=== PATIENT | male | born 1960 | race Caucasian/White ===

== ENCOUNTER 2018-01-15 08:49 | Day surgery (SDC) | payer OTHER ==
[2018-01-15] MEDS ORDERED: LIDOCAINE 2% INJ-PF (20 MG/ML) 10 ML AMPUL ONE (10:13)
[2018-01-15] MEDS ORDERED: PROPOFOL INJ 200 MG/20 ML VIAL IV ONE (10:14)
[2018-01-15] MEDS ORDERED: MIDAZOLAM 2 MG/2 ML INJ ONE (10:14)
[2018-01-15] MEDS ORDERED: ONDANSETRON HCL INJ/PF 4 MG/2 ML SDV ONE (10:50)
[2018-01-15] MEDS ORDERED: DEXAMETHASONE SOD PHOSPHATE INJ 4 MG/1 ML VIAL ONE (10:50)
[2018-01-15] MEDS ORDERED: MEPERIDINE HCL/PF INJ 25 MG/1 ML DISP.SYRIN IV PRN (10:59)
[2018-01-15] MEDS ORDERED: FENTANYL CITRATE INJ/PF 100 MCG/2 ML AMPUL IV PRN (10:59)
[2018-01-15] MEDS ORDERED: ONDANSETRON HCL INJ/PF 4 MG/2 ML SDV IV PRN (10:59)
[2018-01-15] MEDS ORDERED: DIPHENHYDRAMINE HCL 50 MG/ML VIAL IV PRN (10:59)
[2018-01-15] MEDS ORDERED: PROMETHAZINE HCL INJ 25 MG/1 ML VIAL IV PRN ×2 (10:59)
--- NOTE | 2018-01-15 11:46 | Operative Report ---
Operative Report DATE OF SURGERY: 01/15/18 Operative Report: The risks, benefits and alternatives of the procedure including risks of bleeding, perforation requiring surgery are explained to the patient in detail and informed consent is obtained. The patient is taken back to the operating room and placed in the left, lateral decubital position. Timeout was called. Propofol medications administered. A rectal examination is done which did not reveal any masses, tears or fissures. An Olympus videoscope was inserted into the patient's rectum. The scope was then carefully advanced all the way to the cecum. The cecum was identified by the usual anatomical landmarks including the ileocecal valve as well as the appendiceal office. Photodocumentation is obtained. Irrigation is done. The scope was then sequentially pulled out via the various segments of the colon including the ascending colon, hepatic flexure , transverse colon, splenic flexure, descending colon, sigmoid colon and finally into the rectum. Retroflexion maneuvers performed. PREOPERATIVE DIAGNOSIS: Personal history of polyps, rectal bleeding POSTOPERATIVE DIAGNOSIS: 1 large rectal polyp that is removed via snare polypectomy and multiple fragments. Endoclips were placed to reduce the risk of bleeding. Sigmoid colon polyp pedunculated that was removed. Proximal transverse colon polyp sessile, removed via snare polypectomy. There is severe sigmoid diverticulosis. Internal hemorrhoids. Prolonged procedure greater than 45 minutes OPERATION: Colonoscopy with snare polypectomy SURGEON: NITO WEBSTER ANESTHESIA: LMAC TISSUE REMOVED OR ALTERED: As noted above. COMPLICATIONS: None. ESTIMATED BLOOD LOSS: None. INTRAOPERATIVE FINDINGS: As noted above. PROCEDURE: Patient tolerated procedure well. No immediate postprocedure complications are noted. Patient discharged in good condition. Discharge date 01/15/2019. Discharge diet: Regular. Discharge activity: Regular. 2-3 week follow-up to discuss findings. Pending the pathology may need six-month surveillance colonoscopy. Further recommendations to follow.
[2018-01-15 13:25] VITALS: BP 129/60
== END 2018-01-15 12:50 | disposition home or self-care (01) ==
LOC: OROUT 08:49
PROVIDERS: ATTEND Internal Medicine Gastroenterology
DX: D12.3 Benign neoplasm of transverse colon (principal); D12.7 Benign neoplasm of rectosigmoid junction; K57.30 Diverticulosis of large intestine without perforation or abscess without bleeding; K64.8 Other hemorrhoids; Z86.010 Personal history of colon polyps; K21.9 Gastro-esophageal reflux disease without esophagitis; G47.30 Sleep apnea, unspecified; J43.9 Emphysema, unspecified; G47.33 Obstructive sleep apnea (adult) (pediatric); Z87.891 Personal history of nicotine dependence; Z79.51 Long term (current) use of inhaled steroids; Z79.899 Other long term (current) drug therapy
CPT/HCPCS: 45385; 88305 ×2; J1100; J2405; J2704; J3490; 45388; 811; J2250

== ENCOUNTER 2018-02-26 05:15 | Day surgery (SDC) | payer OTHER ==
[2018-02-20 12:23] LABS: HEMATOCRIT 42.2 % (37.9-51.0); HEMOGLOBIN 14.4 g/dL (13.5-17.0); MEAN CORPUSCULAR HEMOGLOBIN 31.3 pg (27.0-33.4); MEAN CORPUSCULAR HGB CONC 34.2 g/dL (32.0-36.0); MEAN CORPUSCULAR VOLUME 91 fl (80-97); PLATELET COUNT 297 10^3/uL (150-450); RED BLOOD COUNT 4.61 10^6/uL (4.35-5.55); WHITE BLOOD COUNT 6.4 10^3/uL (4.0-10.5)
[2018-02-20 12:31] LABS: PROTHROMBIN TIME 12.6 SEC (11.4-15.4)
[2018-02-20 12:32] LABS: PARTIAL THROMBOPLASTIN TIME 20.8 SEC (23.5-35.8)
--- NOTE | 2018-02-20 22:42 | EKG REPORT ---
SEVERITY:- NORMAL ECG - SINUS RHYTHM : Confirmed by: Rosalia Hodges 20-Feb-2018 22:41:13
[~2018-02-26 05:15] MED LIST: AMPICILLIN SODIUM/SULBACTAM NA 3 GM in NORMAL SALINE 100 ML IV PRN; LACTATED RINGERS 1000 ML IV PRN; LIDOCAINE 0.5% INJ-PF (5 MG/ML) 50 ML SDV SUBCUT PRN; LIDOCAINE 1%/EPINEPHRINE INJ 20 ML VIAL ONE; POVIDONE-IODINE 5% OPH PREP SOLN 30 ML ONE; SODIUM BICARBONATE 8.4% INJ 50 MEQ/50 ML DISP.SYRIN ONE
[2018-02-26] MEDS ORDERED: MIDAZOLAM 2 MG/2 ML INJ ONE (07:10)
[2018-02-26] MEDS ORDERED: FENTANYL CITRATE INJ/PF 100 MCG/2 ML AMPUL ONE (07:10)
[2018-02-26] MEDS ORDERED: PROPOFOL INJ 200 MG/20 ML VIAL IV ONE (07:11)
[2018-02-26] MEDS ORDERED: DIPHENHYDRAMINE HCL 50 MG/ML VIAL IV PRN (07:56)
--- NOTE | 2018-02-26 09:47 | Operative Report ---
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 Patient was brought into the operating room and placed on the operating room table in a [supine] position. Patient was then prepped with a Betadine scrub and Betadine solution and draped in a sterile and aseptic manner. The area was then marked. 12 O'clock was marked towards the midline lip 3 O'clock was marked towards the lower lip 6:00 was marked towards the lateral commissure 9:00 was marked towards the medial cheek The area was then anesthetized with 1% lidocaine with epinephrine and bicarbonate for its anesthetic and hemostatic effects. The area was then excised and marked at 12:00. The specimen was sent for frozen section. The results came back that the deep and lateral margins were free. We had considered a primary closure but this would go against the natural relaxed skin tension lines. A primary closure would be too tight and would have increased chance of dehiscence. This will leave more of a scar so we decided to use a O to T flap reconstruction which would camouflage the scar better and take tension off of the closure so that would be less chances of complications. We considered a V-Y Advancement Flap however on a male this would be hard to camouflage and usually leaves a visual scar. Using the O to T we did resect across the white roll and vermilion border and into the lip onto the mouth to remove any puckering and the flap that was created was used to maintain the nasolabial fold. With this design we were able to keep a natural nasolabial fold and we were able to minimize the amount of visual scar and have one scar that crosses the white roll vermilion border and taking the dog ear out from mucosal surface and inside the mouth where it is camouflaged. Then we went ahead and outlined the flap and anesthetized it. We then incised the flap and developed a flap maintaining the subdermal plexus. Then we undermined 360 to allow for plate like scarring and minimize trap door deformity. Throughout the case hemostasis was achieved with the bipolar. We then sutured the flap into its new position using 5-0 Vicryl for the subcutaneous and deep dermis. Skin was closed with a interrupted simple and horizontal mattress sutures using 5-0 chromic and 6-0 Prolene We then applied tincture benzoin and Steri-Strips followed by a light pressure dressing. Patient was then reversed from anesthesia and taken to the [facility] for recovery. The patient tolerated well. There were no complications. Lesion size was approximately 1.3 x 1.4 cm please see pathology for actual size. Portions of this note may be dictated using [employer] voice recognition software. Occasional variations and spelling and vocabulary could be possible and are unintentional. Additionally, there is a chance that some errors may not be caught or corrected. Please notify the author of any discrepancies noted or if any statements are unclear. Subjective: No complaints Objective: Vital signs stable afebrile No bleeding Dressing intact Assessment and plan: Doing well. Elevate the operative site. Resume medications. Take antibiotics for 1 day Follow-up Full instructions were given to the patient and family and they understand Portions of this note may be dictated using [employer] voice recognition software. Occasional variations and spelling and vocabulary could be possible and are unintentional. Additionally, there is a chance that some errors may not be caught or corrected. Please notify the offer of any discrepancies noted or if any statements are unclear.
--- NOTE | 2018-02-26 09:50 | Discharge Summary ---
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 Leave the steri-strip tapes on for 5 days, then removal. Then cleaning wound with peroxide and apply Neosporin/bacitracin 3 times per day. Antibiotics for 1 day, then discontinue. Elevate operative area to decrease swelling. Do not strain, or lift heavy objects. Call for excessive bleeding, increased temperature of 101, uncontrolled pain, or excessive nausea or vomiting. You may reach Dr. Monroe through his office at [phone]. In the event of an emergency after hours, then contact Dr. Monroe through [facility]. Return to the office for a postop check on . The time will be scheduled by the nursing staff of [facility] prior to discharge. Please give the patient a copy of their labs and EKG so they can bring this to their PMD. Thank you Portions of this note may be dictated using [employer] voice recognition software. Occasional variations and spelling and vocabulary could be possible and are unintentional. Additionally, there is a chance that some errors may not be caught or corrected. Please notify the offer of any discrepancies noted or if any statements are unclear. Referrals: TIERRA ARAIZA MD [Primary Care Provider] - Discharge Diet: As Tolerated Report the Following to Your Physician Immediately: Unusual Bleeding - Clear liquids for 2 days. Full liquids for 2 days. Soft diet for the next several days thereafter. Keep head elevated. Limited activities. Minimal talking. Do not open the mouth wide.
[2018-02-26 11:54] VITALS: BP 133/81
== END 2018-02-26 11:25 | disposition home or self-care (01) ==
LOC: OROUT 05:15
PROVIDERS: ATTEND Plastic Surgery
DX: C44.02 Squamous cell carcinoma of skin of lip (principal); J43.9 Emphysema, unspecified; M19.90 Unspecified osteoarthritis, unspecified site; E78.5 Hyperlipidemia, unspecified; Z79.899 Other long term (current) drug therapy; Z87.891 Personal history of nicotine dependence
CPT/HCPCS: 93005; 36415; 85027; 85610; 85730; 88305 ×2; 88331 ×2; 93010; 14060; J0295; J3490 ×3; J2704; 300; J2250; J3010

== ENCOUNTER → 2018-03-08 | Outpatient (CLI) | payer OTHER ==
--- NOTE | 2018-03-08 08:46 | RADIOLOGY REPORT (SQ) ---
EXAM DESCRIPTION: CT CHEST WITHOUT COMPLETED DATE/TIME: 03/08/2018 7:57 am REASON FOR STUDY: SOLITARY PULMONARY NODULE (R91.1) R91.1 SOLITARY PULMONARY NODULE COMPARISON: 11/16/2017 CT chest on [facility] [place] TECHNIQUE: CT scan performed of the chest without intravenous contrast. Images reviewed with lung, soft tissue and bone windows. Reconstructed coronal and sagittal MPR images reviewed. All images st ored on PACS. All CT scanners at this facility use dose modulation, iterative reconstruction, and/or weight based d osing when appropriate to reduce radiation dose to as low as reasonably achievable (ALARA). [facility]: Dose Right [facility]: CareDose [facility]: Dose Right [facility]: Teradose 4D [facility]: Smart [employer] RADIATION DOSE: CT Rad equipment meets quality standard of care and radiation dose reduction techniq ues were employed. CTDIvol: 6.7 mGy. DLP: 296 mGy-cm. mGy. LIMITATIONS: No technical limitations. FINDINGS: LUNGS AND PLEURA: On axial image 84, a 7 mm smooth oval noncalcified nodule is present in the left upper lobe near the major fissure. This is unchanged from CT chest 11/16/2017. In the lingula and along the left major fissure, several other smaller less than 4 mm smooth round ochoa bpleural nodules are present likely noncalcified granulomas. These are stable. There is minimal lingular bandlike atelectasis or scarring stable. On the right side, stable apical bulla or bleb and stable right middle lobe bandlike atelectasis with mild bronchiectasis is present. These findings are stable. No pneumothorax. No pleural effusions. HILAR AND MEDIASTINAL STRUCTURES: No identified masses or abnormal nodes. No obvious aneurysm. Smal l to moderate size retrocardiac hiatal hernia. HEART AND VASCULAR STRUCTURES: No aneurysm. No pericardial effusion. UPPER ABDOMEN: No significant findings. Limited exam. THYROID AND OTHER SOFT TISSUES: Bilateral gynecomastia. BONES: No significant finding. HARDWARE: None in the chest. OTHER: No other significant findings. IMPRESSION: Stable 7 mm nodule in the lingula Repeat noncontrast CT in 1 year (April 2019 for 18 month follow-up to the original CT November 2017 ) COMMENT: FLEISCHNER CRITERIA FOR FOLLOW-UP OF PULMONARY NODULES Incidentally detected new nodules in persons 35 or older. HIGH RISK: History of smoking or other known risk factors. 6-8mm single solid nodule: LOW RISK: CT 6-12 mo; then consider CT 18-24 mo. HIGH RISK: CT 6-12 mo; then CT 18-24 mo. TECHNICAL DOCUMENTATION: JOB ID: [id number] Quality ID # [id number]: Final reports with documentation of one or more dose reduction techniques (e.g., Au tomated exposure control, adjustment of the mA and/or kV according to patient size, use of iterative reconstruction technique) 2010 [employer]- All Rights Reserved Reading location - IP/workstation name: [email or web address]
== END ==
LOC: RAD 07:14
PROVIDERS: ATTEND Internal Medicine Pulmonary Disease
DX: R91.1 Solitary pulmonary nodule (principal)
CPT/HCPCS: 71250

== ENCOUNTER → 2018-03-26 | Outpatient (CLI) | payer OTHER ==
--- NOTE | 2018-03-27 09:56 | RADIOLOGY REPORT (SQ) ---
EXAM DESCRIPTION: PET CT SKULL/THIGH COMPLETED DATE/TIME: 03/27/2018 9:18 am REASON FOR STUDY: SOLITARY PULMONARY NODULE, OTHER DISORDER R91.1 SOLITARY PULMONARY NODULE J98.4 OTHER DISORDERS OF LUNG COMPARISON: CT abdomen pelvis 10/15/2014 CT chest 03/08/2018 Report only, [facility] CT chest 11/16/2017 RADIONUCLIDE AND DOSE: 11.9 mCi F18 FDG The route of agent administration: Intravenous FASTING BLOOD SUGAR: 90 mg/dl CONTRAST TYPE AND DOSE: No CT contrast given. TECHNIQUE: Blood glucose level was verified. Above dose of FDG was injected intravenously. 2-D seg mented attenuation correction images were obtained from the base of the skull to the midthighs. Nonc ontrast CT images were obtained for attenuation correction and fusion with emission images. CT image s were performed without oral or intravenous contrast and are not sensitive for parenchymal lesions. A series of overlapping emission PET images were obtained. Images reviewed and manipulated at [facility] work station by the radiologist. Images stored on PACS. LIMITATIONS: None. FINDINGS: HEAD AND NECK: No areas of abnormal metabolic activity in the soft tissues of the head and neck. CHEST: No areas of abnormal metabolic activity in the chest. However, the lingular nodule of concern is less than 1 cm in size, false negative PET-CT could occur. Recommend continuing non contrasted C T chest follow-up 47 mm node smooth round nodule near the major fissure, with repeat CT without IV co ntrast chest April 2019. ABDOMEN AND PELVIS: No areas of abnormal metabolic activity in the abdomen or pelvis. Expected physi ologic activity is present in the genitourinary system and bowel. PROXIMAL LOWER EXTREMITIES: No areas of abnormal metabolic activity in the soft tissues of the lower extremities. BONES: No abnormal metabolic activity in the visualized skeleton. ADDITIONAL CT FINDINGS: Obstructive lung disease. Bronchiectasis and scarring in the right middle lo be and lingula with benign-appearing 7 mm posterior left upper lobe nodule near the major fissure, fo r which non contrasted CT chest is recommended April 2019. Bilateral gynecomastia. Moderate size hia doe hernia. Colonic diverticulosis without CT signs of acute diverticulitis OTHER: Liver background activity 2.0 SUV. Blood pool background activity 1.5 SUV. IMPRESSION: Smooth round 7 mm nodule in the posterior aspect left upper lobe near the major fissure, unchanged compared to 03/08/2018 CT chest. This nodule is less than 1 cm in size, false negative PET- CT results could occur. Recommend continuing imaging surveillance with noncontrast CT chest in April 2019 for patient's 18 month follow-up exam. TECHNICAL DOCUMENTATION: JOB ID: [id number] [employer]- All Rights Reserved Reading location - IP/workstation name: [email or web address]
== END ==
LOC: RAD 17:19
PROVIDERS: ATTEND Internal Medicine Pulmonary Disease
DX: R91.1 Solitary pulmonary nodule (principal); J98.4 Other disorders of lung
CPT/HCPCS: 78815; A9552

== ENCOUNTER 2018-08-19 06:44 | Day surgery (SDC) | payer OTHER ==
[2018-08-19] MEDS ORDERED: PROPOFOL INJ 200 MG/20 ML VIAL IV ONE ×2 (07:26→08:39)
[2018-08-19 09:30] VITALS: BP 107/62
--- NOTE | 2018-08-19 13:48 | Operative Report ---
Operative Report DATE OF SURGERY: 08/19/18 Operative Report: The risks, benefits and alternatives of the procedure including the risk of bleeding, perforation requiring surgery are explained to the patient in detail and informed consent is obtained. The patient is placed in a left, lateral decubital position. Timeout was called. Propofol medication is administered. A rectal examination is done which did not reveal any masses, tears or fissures. An Olympus videoscope was inserted into the patient's rectum. The scope was then carefully advanced all the way to the cecum. Cecum was identified by the usual anatomical landmarks including the ileocecal valve as well as appendiceal office. Photodocumentation is obtained. Scope was then sequentially pulled back via the various segments of the colon including the ascending colon, hepatic flexure, transverse colon, splenic flexure, descending colon and finally into the rectosigmoid portions of the colon. Retroflexion maneuvers performed. PREOPERATIVE DIAGNOSIS: Personal history of polyps POSTOPERATIVE DIAGNOSIS: Small polyp in the cecal vault removed via biopsy forceps. Polyp noted in the ascending colon removed via snare polypectomy. Rectal polyp removed via snare polypectomy. Diverticulosis without any evidence of diverticulitis. Internal hemorrhoids OPERATION: Colonoscopy with snare polypectomy. Colonoscopy with biopsy SURGEON: NITO WEBSTER ANESTHESIA: LMAC TISSUE REMOVED OR ALTERED: As noted above. COMPLICATIONS: None. ESTIMATED BLOOD LOSS: None. INTRAOPERATIVE FINDINGS: As noted above. PROCEDURE: Patient tolerated procedure well. No immediate postprocedure complications are noted. Patient discharged in good condition. Discharge date 08/19/2018. Discharge diet: Regular. Discharge activity: Regular. 2-3-week follow-up to discuss findings. Patient is instructed call the office or proceed to the emergency room should there be any further proximal questions. Wait on the pathology. 6-month surveillance colonoscopy.
== END 2018-08-19 09:20 | disposition home or self-care (01) ==
LOC: END 06:44
PROVIDERS: ATTEND Internal Medicine Gastroenterology
DX: Z12.11 Encounter for screening for malignant neoplasm of colon (principal); K57.30 Diverticulosis of large intestine without perforation or abscess without bleeding; D12.2 Benign neoplasm of ascending colon; D12.6 Benign neoplasm of colon, unspecified; D12.8 Benign neoplasm of rectum; K64.8 Other hemorrhoids; Z86.010 Personal history of colon polyps; J43.9 Emphysema, unspecified; Z87.891 Personal history of nicotine dependence
CPT/HCPCS: 45380; 45385; 45381; 88305 ×2; J2704; 811

== ENCOUNTER 2018-08-19 14:39 | Inpatient (IN) | payer OTHER ==
[2018-08-19] MEDS ORDERED: NORMAL SALINE 1000 ML 1,000 ML IV ONE (15:04)
--- NOTE | 2018-08-19 15:04 | ER Document Report ---
ED General - General Mode of Arrival: Ambulatory Information source: Patient TRAVEL OUTSIDE OF THE [place] IN LAST 30 DAYS: No <SIERRA PALAFOX - Last Filed: 08/19/18 16:04> <MAINOR AHUJA - Last Filed: 08/19/18 16:24> - General Chief Complaint: Fever Stated Complaint: FEVER Time Seen by Provider: 08/19/18 14:54 Notes: Patient is a 57-year-old male with diverticulosis, COPD and a history of diverticulitis presents to the emergency department complaining of a fever onset today. Patient states that he was discharged after a colonoscopy (poylp removal) around 0900 this morning and began to feel cold afterwards. He states shortly after feeling cold he began to feel hot and developed shortness of breath. Patient states his shortness of breath is new to him due to having recent blebs removed from his left and right lung in April and May, further stating his breathing was much better afterward the bleb removal. Patient states the shortness of breath worsened throughout the day to the point where he was unable to walk around his home and proceeded to come to the emergency department. Patient denies any focal pain. Upon arrival to emergency department patient had an O2 sat of 88 and a fever of 100.3. (SIERRA PALAFOX) Later history is that he has had a little bit of a yellow to green productive cough for the past few days. It is not been really causing him any problems. I do not believe he told his doctor about this prior to the colonoscopy. (MAINOR AHUJA) - Related Data Allergies/Adverse Reactions: midazolam [From Versed] Adverse Reaction (Verified 08/19/18 07:05) VOMITING Past Medical History - General Information source: Patient - Social History Smoking Status: Former Smoker - quit 20+ years ago as of 2018 Cigarette use (# per day): No Smoking Education Provided: No Frequency of alcohol use: None Family History: Reviewed & Not Pertinent Pulmonary Medical History: Reports: Hx Bronchitis, Hx COPD, Hx Pneumonia Musculoskeletal Medical History: Reports Hx Arthritis Past Surgical History: Reports: Other - Bleb removal from left lung in April and right lung in May. - Immunizations Hx Diphtheria, Pertussis, Tetanus Vaccination: Yes - PT UNSURE OF DATE OF PNEUMO VACC Hx Pneumococcal Vaccination: 11/05/00 <SIERRA PALAFOX - Last Filed: 08/19/18 16:04> Review of Systems - Review of Systems Constitutional: See HPI, Fever EENT: No symptoms reported Cardiovascular: No symptoms reported Respiratory: See HPI, Short of breath Gastrointestinal: No symptoms reported Genitourinary: No symptoms reported Male Genitourinary: No symptoms reported Musculoskeletal: No symptoms reported Skin: No symptoms reported Hematologic/Lymphatic: No symptoms reported Neurological/Psychological: No symptoms reported -: Yes All other systems reviewed and negative <VIVIENNESIERRA MCDONALD - Last Filed: 08/19/18 16:04> Physical Exam - General General appearance: Appears well, Alert In distress: None - HEENT Head: Normocephalic, Atraumatic Eyes: Normal Conjunctiva: Normal Extraocular movements intact: Yes Pupils: PERRL Mucous membranes: Normal Neck: Normal - Respiratory Respiratory status: Tachypnea - Currently 93% on 2L of oxygen Chest status: Nontender Breath sounds: Rhonchi - Left lower lung base, Other - Crackles in left lower lung base Chest palpation: Normal - Cardiovascular Rhythm: Regular, Tachycardia Murmur: No Friction rub: No Gallop: None auscultated - Abdominal Inspection: Normal Distension: Distended - Resonant to percuss Bowel sounds: Normal Tenderness: Nontender Organomegaly: No organomegaly - Back Back: Normal - Extremities General upper extremity: Normal ROM General lower extremity: Normal ROM - Neurological Neuro grossly intact: Yes Cognition: Normal Orientation: AAOx4 Hailey Coma Scale Eye Opening: Spontaneous Hailey Coma Scale Verbal: Oriented Hailey Coma Scale Motor: Obeys Commands [place] Coma Scale Total: 15 Speech: Normal - Psychological Associated symptoms: Normal affect, Normal mood - Skin Skin Temperature: Warm Skin Moisture: Dry Skin Color: Normal <VIVIENNESIERRA MCDONALD Last Filed: 08/19/18 16:04> - Vital signs Vitals: Resp Pulse Ox 24 H 92 08/19/18 14:54 08/19/18 14:54 Course - Laboratory Result Diagrams: 08/19/18 15:05 08/19/18 15:05 <VIVIENNESIERRA MCDONALD Last Filed: 08/19/18 16:04> - Laboratory Result Diagrams: 08/19/18 15:05 08/19/18 15:05 - Diagnostic Test Radiology reviewed: Reports reviewed - Left lower lobe pneumonia, possibly due to aspiration - EKG Interpretation by Me EKG shows normal: Sinus rhythm, [place], Intervals, QRS Complexes, ST-T Waves Rate: Tachycardia - 136 [place]/QRS: RBBB - Incomplete right bundle branch block When compared to previous EKG there are: Previous EKG unavailable - Consults Dr. Robertson Time consulted: 16:10 Consulted provider: will come to ER <MAINOR AHUJA - Last Filed: 08/19/18 16:24> - Re-evaluation Re-evalutation: 08/19/18 16:04 Patient rechecked. Patient mentions having a productive cough with yellowish green sputum the last couple of days. (SIERRA PALAFOX) - Vital Signs Vital signs: Temp Pulse Resp BP Pulse Ox 23 H 93 08/19/18 15:00 08/19/18 15:00 - Laboratory Laboratory results interpreted by me: 08/19/18 08/19/18 08/19/18 14:59 15:05 15:05 WBC 13.3 H Seg Neuts % (Manual) 89 H Band Neutrophils % 6 H Lymphocytes % (Manual) 4 L Monocytes % (Manual) 0 L Abs Neuts (Manual) 12.6 H Abs Monocytes (Manual) 0.0 L Glucose 117 H Direct Bilirubin 0.5 H Urine Ketones 80 H Critical Care Note - Critical Care Note Total time excluding time spent on procedures (mins): 40 <MAINOR AHUJA - Last Filed: 08/19/18 16:24> Discharge <SIERRA PALAFOX - Last Filed: 08/19/18 16:04> - Discharge Admitting Provider: Hospitalist Unit Admitted: Telemetry <MAINOR AHUJA - Last Filed: 08/19/18 16:24> - Discharge Clinical Impression: Hypoxia, Tachycardia, Status post colonoscopy with polypectomy Pneumonia Qualifiers: Pneumonia type: due to unspecified organism Laterality: left Lung location: lower lobe of lung Qualified Code(s): J18.1 - Lobar pneumonia, unspecified organism Fever Qualifiers: Fever type: unspecified Qualified Code(s): R50.9 - Fever, unspecified Leukocytosis Qualifiers: Leukocytosis type: bandemia Qualified Code(s): D72.825 - Bandemia Condition: Good Disposition: ADMITTED INPATIENT Referrals: TIERRA ARAIZA MD [Primary Care Provider] - Follow up as needed Scribe Attestation: 08/19/18 15:44 I personally performed the services described in the documentation, reviewed and edited the documentation which was dictated to the scribe in my presence, and it accurately records my words and actions. (MAINOR AHUJA) Scribe Documentation - Scribe Written by Scribe:: Wilver Linder, 08/19/2018 15:24 acting as scribe for :: Debby <SIERRA PALAFOX - Last Filed: 08/19/18 16:04>
[2018-08-19 15:22] LABS: APPEARANCE,URINE CLEAR; BILIRUBIN,URINE NEGATIVE (NEGATIVE); COLOR,URINE YELLOW; GLUCOSE, URINE NEGATIVE (NEGATIVE); KETONES,URINE 80 mg/dL (NEGATIVE); LEUKOCYTE ESTERASE,URINE NEGATIVE (NEGATIVE); NITRITE,URINE NEGATIVE (NEGATIVE); PROTEIN,URINE NEGATIVE (NEGATIVE); URINE SPECIFIC GRAVITY 1.019; UROBILINOGEN,URINE NEGATIVE mg/dL (<2.0)
[2018-08-19 15:24] LABS: VENOUS BLOOD BASE EXCESS 1.5 mmol/L; VENOUS BLOOD HCO3 27.5 mmol/L (20-32); VENOUS BLOOD PCO2 47.8 mmHg (35-63); VENOUS BLOOD PH 7.38 (7.30-7.42)
[2018-08-19 15:29] LABS: HEMATOCRIT 44.8 % (37.9-51.0); HEMOGLOBIN 15.4 g/dL (13.5-17.0); MEAN CORPUSCULAR HEMOGLOBIN 29.7 pg (27.0-33.4); MEAN CORPUSCULAR HGB CONC 34.5 g/dL (32.0-36.0); MEAN CORPUSCULAR VOLUME 86 fl (80-97); PLATELET COUNT 259 10^3/uL (150-450); RED BLOOD COUNT 5.19 10^6/uL (4.35-5.55); WHITE BLOOD COUNT 13.3 10^3/uL (4.0-10.5)
[2018-08-19] MEDS ORDERED: ACETAMINOPHEN 325 MG TABLET PO ONE (15:30)
[2018-08-19] MEDS ORDERED: LEVOFLOXACIN 750 MG/D5W RTU 750 MG/150 ML RTUPB IV ONE (15:30)
[2018-08-19 15:44] LABS: ALANINE AMINOTRANSFERASE 49 U/L (21-72); ALBUMIN 4.6 g/dL (3.5-5.0); ALKALINE PHOSPHATASE 93 U/L (38-126); ANION GAP 13 (5-19); ASPARTATE AMINO TRANSFERASE 39 U/L (17-59); BILIRUBIN,DIRECT 0.5 mg/dL (0.0-0.4); BILIRUBIN,TOTAL 1.1 mg/dL (0.2-1.3); BLOOD UREA NITROGEN 13 mg/dL (7-20); CALCIUM 9.8 mg/dL (8.4-10.2); CARBON DIOXIDE 27 mmol/L (22-30); CHLORIDE 100 mmol/L (98-107); CREATINE KINASE 59 U/L (55-170); GLUCOSE 117 mg/dL (75-110); POTASSIUM 4.2 mmol/L (3.6-5.0); SODIUM 139.6 mmol/L (137-145)
[2018-08-19] MEDS ORDERED: METHYLPREDNISOLONE INJ 125 MG/2 ML SDV IV ONE (15:51)
[2018-08-19 15:55] LABS: CREATINE KINASE MB 0.46 ng/mL (<4.55)
[2018-08-19 15:58] LABS: TROPONIN I < 0.012 ng/mL
--- NOTE | 2018-08-19 15:58 | RADIOLOGY REPORT (SQ) ---
EXAM DESCRIPTION: CHEST SINGLE VIEW COMPLETED DATE/TIME: 08/19/2018 3:48 pm REASON FOR STUDY: Post colonoscopy fever with dyspnea COMPARISON: Two-view chest 02/01/2010 EXAM PARAMETERS: NUMBER OF VIEWS: One view. TECHNIQUE: Single frontal radiographic view of the chest acquired. RADIATION DOSE: NA LIMITATIONS: None. FINDINGS: LUNGS AND PLEURA: There is left lower lobe airspace disease worrisome for aspiration pneum onia. This result was discussed with Dr. Guardado in the emergency room. Right lung clear. Faintly visible bilateral upper lobe lung parenchymal melvi post removal of apical bullous/blebs. No pneumothorax. No pleural effusions. MEDIASTINUM AND HILAR STRUCTURES: No masses. Contour normal. HEART AND VASCULAR STRUCTURES: Heart normal in size. Normal vasculature. BONES: No acute findings. HARDWARE: None in the chest. OTHER: No other significant finding. IMPRESSION: Left lower lobe airspace disease worrisome for aspiration pneumonia TECHNICAL DOCUMENTATION: JOB ID: [id number] [employer]- All Rights Reserved Reading location - IP/workstation name: [email or web address]
[2018-08-19 16:06] LABS: ABSOLUTE LYMPHOCYTES# (MANUAL) 0.5 10^3/uL (0.5-4.7); ABSOLUTE NEUTROPHILS# (MANUAL) 12.6 10^3/uL (1.7-8.2); BAND NEUTROPHILS % (MANUAL) 6 % (3-5); BASOPHILS % (MANUAL) 1 % (0-2); EOSINOPHILS % (MANUAL) 0 % (0-6); LYMPHOCYTES % (MANUAL) 4 % (13-45); MONOCYTES % (MANUAL) 0 % (3-13); SEGMENTED NEUTROPHILS % (MAN) 89 % (42-78); TOTAL CELLS COUNTED 100
[2018-08-19 16:08] LABS: PLATELET COMMENT ADEQUATE; TOXIC GRANULATION 1+; TOXIC VACUOLATION PRESENT
--- NOTE | 2018-08-19 17:00 | PDOC H&P ---
History of Present Illness Admission Date/PCP: 08/19/18 16:31 TIERRA ARAIZA MD History of Present Illness: KATINA ABRAHAM is a 57 year old male who came in today for a follow-up colonoscopy from when he had done about 6 months ago. The colonoscopy itself was uneventful, but his said after he got home he was not acting right does seem like it took him a long time to come out of the anesthesia. She said he then developed a worsening cough and fever and shortness of breath. She brought into the emergency department and it looks like he is got a pneumonia on chest x-ray. He said prior to the colonoscopy he was feeling fine had not been having any substantial symptoms to report. He is not been hospitalized in the last 3 months. Past Medical History Cardiac Medical History: Denies: Coronary Artery Disease - CHOLESTEROL, Myocardial Infarction, Hypertension Pulmonary Medical History: Reports: Bronchitis, Chronic Obstructive Pulmonary Disease (COPD), Pneumonia Denies: Asthma Neurological Medical History: Denies: Seizures Musculoskeltal Medical History: Reports: Arthritis Hematology: Denies: Anemia Past Surgical History Past Surgical History: Reports: Other - Bleb removal from left lung in April and right lung in May. Denies: Pacemaker Social History Smoking Status: Former Smoker - quit 20+ years ago as of 2018 Family History Family History: Reviewed & Not Pertinent Parental Family History Reviewed: Yes - Not applicable Children Family History Reviewed: NA Sibling(s) Family History Reviewed.: NA Medication/Allergy Allergies/Adverse Reactions: midazolam [From Versed] Adverse Reaction (Verified 08/19/18 07:05) VOMITING Review of Systems All systems: reviewed and no additional remarkable complaints except as stated - 10 point review of systems was conducted with the patient was negative except as noted above Physical Exam Vital Signs: Temp Pulse Resp BP Pulse Ox 23 H 93 08/19/18 15:00 08/19/18 15:00 General appearance: PRESENT: no acute distress, cooperative Head exam: PRESENT: atraumatic, normocephalic Eye exam: PRESENT: EOMI, PERRLA. ABSENT: nystagmus, scleral icterus Ear exam: PRESENT: normal external ear exam Mouth exam: PRESENT: moist, neck supple Throat exam: ABSENT: post pharyngeal erythema Neck exam: PRESENT: full ROM. ABSENT: JVD, lymphadenopathy, tenderness Respiratory exam: PRESENT: crackles - Left base, unlabored. ABSENT: accessory muscle use, rhonchi, tachypnea, wheezes Cardiovascular exam: PRESENT: tachycardia Pulses: PRESENT: normal radial pulses, normal dorsalis pedis pul Vascular exam: PRESENT: normal capillary refill GI/Abdominal exam: PRESENT: normal bowel sounds, soft. ABSENT: distended, guarding, rebound, tenderness Rectal exam: PRESENT: deferred Extremities exam: PRESENT: full ROM. ABSENT: pedal edema Musculoskeletal exam: PRESENT: normal inspection. ABSENT: deformity Neurological exam: PRESENT: alert, awake, oriented to person, oriented to place , oriented to time, CN II-XII grossly intact. ABSENT: motor sensory deficit Psychiatric exam: PRESENT: appropriate affect, normal mood Skin exam: PRESENT: dry, warm Results Impressions: Chest X-Ray 08/19/18 15:04 IMPRESSION: Left lower lobe airspace disease worrisome for aspiration pneumonia Assessment & Plan - Diagnosis (1) Sepsis Qualifiers: Sepsis type: sepsis due to unspecified organism Qualified Code(s): A41.9 - Sepsis, unspecified organism Is this a current diagnosis for this admission?: Yes Plan: Due to aspiration pneumonia. He was started empirically on Levaquin. He was lying on his left side during the colonoscopy and he probably aspirated during the course of the procedure. He already looks better in the ER. He is on oxygen for the hypoxemia. He feels good now wants something to eat. We will watch him overnight and monitor his clinical course. Cultures are pending. (2) Acute hypoxemic respiratory failure Is this a current diagnosis for this admission?: Yes Plan: I suspect this is likely resolved. He was up to 97% on 2 L when I saw him in the ER. We will take the oxygen off of him and see how he does. - Time Time Spent: 50 to 70 Minutes - Inpatient Certification Based on my medical assessment, after consideration of the patient's comorbidities, presenting symptoms, or acuity I expect that the services needed warrant INPATIENT care.: Yes I certify that my determination is in accordance with my understanding of Medicare's requirements for reasonable and necessary INPATIENT services [42 CFR 412.3e].: Yes Medical Necessity: Need Close Monitoring Due to Risk of Patient Decompensation
[2018-08-19 22:19] LABS: ANION GAP 12 (5-19); BLOOD UREA NITROGEN 12 mg/dL (7-20); CALCIUM 9.6 mg/dL (8.4-10.2); CARBON DIOXIDE 22 mmol/L (22-30); CHLORIDE 104 mmol/L (98-107); GLUCOSE 283 mg/dL (75-110); POTASSIUM 4.6 mmol/L (3.6-5.0); SODIUM 137.5 mmol/L (137-145)
[2018-08-19 22:31] LABS: ARTERIAL BLOOD H2CO3 1.18 mmol/L (1.05-1.35); ARTERIAL BLOOD HCO3 22.8 mmol/L (20-24); ARTERIAL BLOOD O2 SATURATION 95.6 % (94-98); ARTERIAL BLOOD PCO2 39.1 mmHg (35-45); ARTERIAL BLOOD PH 7.38 (7.35-7.45); ARTERIAL BLOOD PO2 79.5 mmHg (80-100)
[2018-08-19 22:37] LABS: ARTERIAL BLOOD FIO2 1L
[2018-08-20 06:46] LABS: HEMATOCRIT 39.9 % (37.9-51.0); HEMOGLOBIN 13.6 g/dL (13.5-17.0); MEAN CORPUSCULAR HEMOGLOBIN 29.8 pg (27.0-33.4); MEAN CORPUSCULAR HGB CONC 34.2 g/dL (32.0-36.0); MEAN CORPUSCULAR VOLUME 87 fl (80-97); PLATELET COUNT 245 10^3/uL (150-450); RED BLOOD COUNT 4.58 10^6/uL (4.35-5.55); RED CELL DISTRIBUTION WIDTH 13.2 % (11.5-14.0); WHITE BLOOD COUNT 19.8 10^3/uL (4.0-10.5)
[2018-08-20 07:07] LABS: ANION GAP 8 (5-19); BLOOD UREA NITROGEN 12 mg/dL (7-20); CALCIUM 9.8 mg/dL (8.4-10.2); CARBON DIOXIDE 27 mmol/L (22-30); CHLORIDE 103 mmol/L (98-107); GLUCOSE 186 mg/dL (75-110); POTASSIUM 4.4 mmol/L (3.6-5.0); SODIUM 138.4 mmol/L (137-145)
[2018-08-20] MEDS ORDERED: LEVOFLOXACIN 750 MG TABLET PO SCH (10:00)
[2018-08-20] MEDS ORDERED: EZETIMIBE 10 MG TABLET PO SCH (10:00)
[2018-08-20] MEDS ORDERED: LANSOPRAZOLE 30 MG TAB.RAP.DR PO SCH (10:00)
[2018-08-20] MEDS ORDERED: LEVALBUTEROL HCL NEB 1.25 MG/3 ML AMPUL NEB SCH (11:00)
[2018-08-20 11:12] VITALS: BP 111/63
[2018-08-20] MEDS ORDERED: ACETYLCYSTEINE 20% SOLN 800 MG/4 ML VIAL.NEB NEB SCH (12:00)
--- NOTE | 2018-08-20 12:29 | PDOC CONSULTATION ---
Consultation Consult Date: 08/20/18 Attending physician:: MARINE VEGAS Consult reason:: aspiration History of Present Illness Admission Date/PCP: 08/19/18 16:31 TIERRA ARAIZA MD History of Present Illness: KATINA ABRAHAM is a 57 year old male , Status post colonoscopy denies infiltrate left lower lobe presumed aspiration she is coughing up dark yellow phlegm but otherwise in no distress I followed him in [facility] for lung nodule which still has not appear to be changing although currently I would not get repeat a CT scan as he would probably do be difficult to interpret in the face of this acute inflammation he denies shortness of breath dips and exertion nausea vomiting diarrhea fevers chills chest pain or edema Past Medical History Cardiac Medical History: Denies: Coronary Artery Disease - CHOLESTEROL, Myocardial Infarction, Hypertension Pulmonary Medical History: Reports: Bronchitis, Chronic Obstructive Pulmonary Disease (COPD), Pneumonia Denies: Asthma Neurological Medical History: Denies: Seizures Musculoskeltal Medical History: Reports: Arthritis Hematology: Denies: Anemia Past Surgical History Past Surgical History: Reports: Other - Bleb removal from left lung in April and right lung in May. Denies: Pacemaker Social History Information Source: Patient, [facility] Records Smoking Status: Former Smoker Frequency of Alcohol Use: Rare Hx Recreational Drug Use: No Drugs: None Hx Prescription Drug Abuse: No - Advance Directive Resuscitation Status: Full Code Family History Family History: Hypertension Parental Family History Reviewed: Yes Children Family History Reviewed: Yes Sibling(s) Family History Reviewed.: Yes Medication/Allergy Home Medications: Dexlansoprazole [Dexilant 60 mg Capsule] 60 mg PO DAILY 08/19/18 Ezetimibe [Zetia 10 mg Tablet] 10 mg PO DAILY 08/19/18 Naproxen/Esomeprazole Mag [Vimovo Dr 500-20 mg Tablet] 1 each PO BID 08/19/18 Rosuvastatin Calcium [Crestor 10 mg Tablet] 10 mg PO DAILY 08/19/18 Moxifloxacin HCl [Avelox] 400 mg PO DAILY #7 tablet 08/20/18 Allergies/Adverse Reactions: midazolam [From Versed] Adverse Reaction (Verified 08/19/18 07:05) VOMITING Review of Systems Constitutional: ABSENT: chills, fever(s), night sweats, weakness Eyes: ABSENT: visual disturbances Ears: ABSENT: hearing changes Nose, Mouth, and Throat: ABSENT: mouth pain, sore throat Cardiovascular: ABSENT: dyspnea on exertion, edema, orthropnea, palpitations Respiratory: PRESENT: cough, hemoptysis, sputum Gastrointestinal: ABSENT: abdominal pain, bloating, coffee ground emesis, dysphagia, hematemesis, hematochezia, melena Genitourinary: ABSENT: dysuria, hematuria Musculoskeletal: ABSENT: deformity, joint swelling Integumentary: ABSENT: pruritus, rash Neurological: ABSENT: abnormal movements, abnormal speech, confusion, convulsions, focal weakness, frequent falls, lack of coordination, memory loss, tingling, weakness Psychiatric: ABSENT: hallucinations, homidical ideation, suicidal ideation Endocrine: ABSENT: cold intolerance, heat intolerance, polydipsia, polyuria Hematologic/Lymphatic: ABSENT: easy bruising Allergic/Immunologic: ABSENT: seasonal rhinorrhea Physical Exam Vital Signs: Temp Pulse Resp BP Pulse Ox 98.1 F 91 15 116/64 95 08/20/18 03:25 08/20/18 07:23 08/20/18 03:25 08/20/18 07:23 08/20/18 07:23 Intake & Output 08/19/18 08/20/18 08/21/18 06:59 06:59 06:59 Intake Total 1530 Balance 1530 Weight 76.8 kg General appearance: PRESENT: no acute distress, cooperative, well-developed, well-nourished. ABSENT: disheveled Head exam: PRESENT: atraumatic, normocephalic Eye exam: PRESENT: conjunctiva pale, EOMI, PERRLA. ABSENT: nystagmus, periorbital swelling, scleral icterus Mouth exam: PRESENT: moist, neck supple, tongue midline Neck exam: ABSENT: carotid bruit, JVD, lymphadenopathy, thyromegaly, tracheal deviation, tracheostomy Respiratory exam: PRESENT: rales, rhonchi, unlabored. ABSENT: retraction, stridor, tachypnea, wheezes Cardiovascular exam: PRESENT: RRR, +S1, +S2 Pulses: PRESENT: normal radial pulses GI/Abdominal exam: PRESENT: soft. ABSENT: tenderness Gentrourinary exam: ABSENT: indwelling catheter Extremities exam: ABSENT: calf tenderness, clubbing, joint swelling, pedal edema Musculoskeletal exam: PRESENT: ambulatory. ABSENT: deformity, dislocation Neurological exam: PRESENT: alert, awake Psychiatric exam: PRESENT: normal mood Skin exam: PRESENT: dry, warm Results Laboratory Results: 08/20/18 06:25 08/20/18 06:25 08/19/18 08/19/18 08/19/18 19:43 21:46 22:20 WBC RBC Hgb Hct MCV MCH MCHC RDW Plt Count Carbonic Acid 1.18 HCO3/H2CO3 Ratio 19:1 ABG pH 7.38 ABG pCO2 39.1 ABG pO2 79.5 L ABG HCO3 22.8 ABG O2 Saturation 95.6 ABG Base Excess -2.0 FiO2 1L Sodium 137.5 Potassium 4.6 Chloride 104 Carbon Dioxide 22 Anion Gap 12 BUN 12 Creatinine 0.74 Est GFR ( Amer) > 60 Est GFR (Non-Af Amer) > 60 Glucose 283 H Lactic Acid 4.7 H Calcium 9.6 08/20/18 08/20/18 06:25 06:25 WBC 19.8 H RBC 4.58 Hgb 13.6 Hct 39.9 MCV 87 MCH 29.8 MCHC 34.2 RDW 13.2 Plt Count 245 Carbonic Acid HCO3/H2CO3 Ratio ABG pH ABG pCO2 ABG pO2 ABG HCO3 ABG O2 Saturation ABG Base Excess FiO2 Sodium 138.4 Potassium 4.4 Chloride 103 Carbon Dioxide 27 Anion Gap 8 BUN 12 Creatinine 0.71 Est GFR ( Amer) > 60 Est GFR (Non-Af Amer) > 60 Glucose 186 H Lactic Acid Calcium 9.8 Impressions: Chest X-Ray 08/19/18 15:04 IMPRESSION: Left lower lobe airspace disease worrisome for aspiration pneumonia Assessment & Plan - Diagnosis (1) Aspiration pneumonitis Is this a current diagnosis for this admission?: Yes Plan: Acetylcysteine and Xopenex tid may be used at home as well as chest physiotherapy to the left lateral and posterior chest haque
--- NOTE | 2018-08-20 18:07 | PDOC DISCHARGE SUMMARY ---
General - Admit/Disc Date/PCP Admission Date/Primary Care Provider: 08/19/18 16:31 TIERRA ARAIZA MD Discharge Date: 08/20/18 - Discharge Diagnosis (1) Sepsis Is this a current diagnosis for this admission?: Yes Summary: Resolved quickly with IV fluids and antibiotics. Likely due to aspiration pneumonia. He will finish a course of Avelox at home. I also encouraged him to get some Mucinex and use that. We encouraged aggressive pulmonary toilet. (2) Acute hypoxemic respiratory failure Is this a current diagnosis for this admission?: Yes Summary: Resolved within a few hours. - Additional Information Resuscitation Status: Full Code Discharge Diet: Regular Discharge Activity: Activity As Tolerated Prescriptions: Moxifloxacin HCl [Avelox] 400 mg PO DAILY #7 tablet Home Medications: Dexlansoprazole [Dexilant 60 mg Capsule] 60 mg PO DAILY 08/19/18 Ezetimibe [Zetia 10 mg Tablet] 10 mg PO DAILY 08/19/18 Naproxen/Esomeprazole Mag [Vimovo Dr 500-20 mg Tablet] 1 each PO BID 08/19/18 Rosuvastatin Calcium [Crestor 10 mg Tablet] 10 mg PO DAILY 08/19/18 Moxifloxacin HCl [Avelox] 400 mg PO DAILY #7 tablet 08/20/18 History of Present Illness History of Present Illness: KATINA ABRAHAM is a 57 year old male who came in today for a follow-up colonoscopy from when he had done about 6 months ago. The colonoscopy itself was uneventful, but his said after he got home he was not acting right does seem like it took him a long time to come out of the anesthesia. She said he then developed a worsening cough and fever and shortness of breath. She brought into the emergency department and it looks like he is got a pneumonia on chest x-ray. He said prior to the colonoscopy he was feeling fine had not been having any substantial symptoms to report. He is not been hospitalized in the last 3 months. Hospital Course Hospital Course: He improved pretty rapidly. He follows Dr. Reyes as an outpatient, and Dr. Reyes did not recommend anything more aggressively inpatient than what we were already doing, so we let him go home today. He was on room air and said he had a little short of breath with ambulation but that is not entirely abnormal for him. I told him to take a few days off before he went back to work. He will finish up her course of Avelox at home. He got a shot of Decadron in the emergency department that is probably why his white blood cell count went up from yesterday. His labs and examination today were reassuring and he was discharged home in good condition. Physical Exam Vital Signs: Temp Pulse Resp BP Pulse Ox 98.1 F 89 19 111/63 92 08/20/18 11:08 08/20/18 11:18 08/20/18 11:18 08/20/18 11:08 08/20/18 11:18 Intake & Output 08/19/18 08/20/18 08/21/18 06:59 06:59 06:59 Intake Total 1530 Balance 1530 Weight 76.8 kg General appearance: PRESENT: no acute distress, cooperative Respiratory exam: PRESENT: crackles - Left base, unlabored. ABSENT: accessory muscle use, prolonged expiratory phas, rhonchi, tachypnea, wheezes Cardiovascular exam: PRESENT: RRR, +S1, +S2. ABSENT: diastolic murmur, systolic murmur GI/Abdominal exam: PRESENT: normal bowel sounds, soft. ABSENT: distended, guarding, rebound, tenderness Extremities exam: PRESENT: full ROM. ABSENT: joint swelling, pedal edema Musculoskeletal exam: PRESENT: ambulatory, full ROM, normal inspection. ABSENT : deformity Neurological exam: PRESENT: alert, awake, oriented to person, oriented to place , oriented to time, normal gait Psychiatric exam: PRESENT: appropriate affect, normal mood Results Laboratory Results: 08/20/18 06:25 08/20/18 06:25 08/19/18 08/19/18 08/19/18 19:43 21:46 22:20 WBC RBC Hgb Hct MCV MCH MCHC RDW Plt Count Carbonic Acid 1.18 HCO3/H2CO3 Ratio 19:1 ABG pH 7.38 ABG pCO2 39.1 ABG pO2 79.5 L ABG HCO3 22.8 ABG O2 Saturation 95.6 ABG Base Excess -2.0 FiO2 1L Sodium 137.5 Potassium 4.6 Chloride 104 Carbon Dioxide 22 Anion Gap 12 BUN 12 Creatinine 0.74 Est GFR ( Amer) > 60 Est GFR (Non-Af Amer) > 60 Glucose 283 H Lactic Acid 4.7 H Calcium 9.6 08/20/18 08/20/18 06:25 06:25 WBC 19.8 H RBC 4.58 Hgb 13.6 Hct 39.9 MCV 87 MCH 29.8 MCHC 34.2 RDW 13.2 Plt Count 245 Carbonic Acid HCO3/H2CO3 Ratio ABG pH ABG pCO2 ABG pO2 ABG HCO3 ABG O2 Saturation ABG Base Excess FiO2 Sodium 138.4 Potassium 4.4 Chloride 103 Carbon Dioxide 27 Anion Gap 8 BUN 12 Creatinine 0.71 Est GFR ( Amer) > 60 Est GFR (Non-Af Amer) > 60 Glucose 186 H Lactic Acid Calcium 9.8 Impressions: Chest X-Ray 08/19/18 15:04 IMPRESSION: Left lower lobe airspace disease worrisome for aspiration pneumonia Qualifiers - * PATIENT BEING DISCHARGED WITH ANY OF THE FOLLOWING DIAGNOSIS: No
== END 2018-08-20 12:33 | disposition home or self-care (01) | DRG 871 ==
LOC: ER 14:39 → EH 16:31 → 4S 18:47
PROVIDERS: ADMIT Internal Medicine; ATTEND Internal Medicine
DX: A41.9 Sepsis, unspecified organism (principal); J69.0 Pneumonitis due to inhalation of food and vomit; J96.01 Acute respiratory failure with hypoxia; J44.9 Chronic obstructive pulmonary disease, unspecified; M19.90 Unspecified osteoarthritis, unspecified site; Z87.891 Personal history of nicotine dependence; Z98.890 Other specified postprocedural states; Z86.010 Personal history of colon polyps
CPT/HCPCS: 36415; 36600; 71045; 80048; 80053; 81001; 82550; 82553; 82803; 83605; 84484; 85025; 85027; 87040; 94640; 94667; 96374; 99291; J1956; J2930; J3490; J7030

== ENCOUNTER 2018-10-07 08:00 | Day surgery (SDC) | payer OTHER ==
[~2018-10-07 08:00] MED LIST changes: -AMPICILLIN SODIUM/SULBACTAM NA 3 GM in NORMAL SALINE 100 ML IV PRN; -LACTATED RINGERS 1000 ML IV PRN; -LIDOCAINE 0.5% INJ-PF (5 MG/ML) 50 ML SDV SUBCUT PRN; -LIDOCAINE 1%/EPINEPHRINE INJ 20 ML VIAL ONE; -POVIDONE-IODINE 5% OPH PREP SOLN 30 ML ONE; +PROPOFOL INJ 200 MG/20 ML VIAL IV ONE; -SODIUM BICARBONATE 8.4% INJ 50 MEQ/50 ML DISP.SYRIN ONE
[2018-10-07 10:01] VITALS: BP 124/71
--- NOTE | 2018-10-07 13:45 | Operative Report ---
Operative Report DATE OF SURGERY: 10/07/18 Operative Report: The risks, benefits and alternatives of the procedure including the risk of bleeding, perforation requiring surgery are explained to the patient in detail and informed consent is obtained. The patient is brought back to the endoscopy suite and placed in the left, lateral decubital position. Timeout was called. Propofol medication is administered. A rectal examination is done which did not reveal any masses, tears or fissures. An Olympus videoscope was introduced into the patient's rectum. The scope was then carefully advanced all the way to the cecum. The cecum was identified by the usual anatomical landmarks of the ileocecal valve as well as the appendiceal office. Prep was good. Photodocumentation was obtained. The scope was then sequentially pulled back via the various segments of the colon including the ascending colon, hepatic flexure, transverse colon, splenic flexure, descending colon and finally into the rectosigmoid portions of the colon. Retroflexion maneuver is performed. PREOPERATIVE DIAGNOSIS: Personal history of polyp POSTOPERATIVE DIAGNOSIS: Diverticulosis colon polyp which was snared and removed via snare polypectomy in the transverse colon. Biopsy taken at the previous rectal polyp site the Endo Clip is still present. There is some granulomatous tissue that is obtained via biopsy forceps to rule out persistent of adenoma tissue. Internal hemorrhoids OPERATION: Colonoscopy with snare polypectomy. Colonoscopy with biopsy SURGEON: NITO WEBSTER ANESTHESIA: LMAC TISSUE REMOVED OR ALTERED: As noted above. COMPLICATIONS: None. ESTIMATED BLOOD LOSS: None. INTRAOPERATIVE FINDINGS: As noted above. PROCEDURE: Patient tolerated the procedure well. No immediate postprocedure complications are noted. Patient is discharged in good condition. Discharge date 10/07/2018. Discharge diet: Regular. Discharge activity: Regular. 2-3-week follow-up to discuss findings. Patient is instructed to call the office or proceed to the emergency room should there be any further problems or questions. Depending on the pathology of the polyp 1 year surveillance colonoscopy.
== END 2018-10-07 09:45 | disposition home or self-care (01) ==
LOC: END 08:00
PROVIDERS: ATTEND Internal Medicine Gastroenterology
DX: D12.6 Benign neoplasm of colon, unspecified (principal)
CPT/HCPCS: 45380; 45385; 88305 ×2; J2704; 811

== ENCOUNTER 2018-10-10 09:40 | Day surgery (SDC) | payer OTHER ==
[2018-10-10] MEDS ORDERED: FENTANYL CITRATE INJ/PF 100 MCG/2 ML AMPUL ONE (11:11)
[2018-10-10] MEDS ORDERED: PROPOFOL INJ 200 MG/20 ML VIAL IV ONE (11:11)
[2018-10-10] MEDS ORDERED: PROMETHAZINE HCL INJ 25 MG/1 ML VIAL IV PRN ×2 (11:29)
[2018-10-10] MEDS ORDERED: DIPHENHYDRAMINE HCL 50 MG/ML VIAL IV PRN (11:29)
[2018-10-10] MEDS ORDERED: MEPERIDINE HCL/PF INJ 25 MG/1 ML DISP.SYRIN IV PRN (11:29)
[2018-10-10] MEDS ORDERED: ONDANSETRON HCL INJ/PF 4 MG/2 ML SDV IV PRN (11:29)
[2018-10-10] MEDS ORDERED: FENTANYL CITRATE INJ/PF 100 MCG/2 ML AMPUL IV PRN ×3 (11:29)
[2018-10-10 15:38] VITALS: BP 135/70
--- NOTE | 2018-10-11 16:28 | Discharge Summary ---
Discharge Summary (SDC) - Discharge Final Diagnosis: Bleeding internal hemorrhoids Date of Surgery: 10/10/18 Discharge Date: 10/10/18 Condition: Stable Forms: ASU Anesthesia D/C Instruction, Discharge POC-Surgical Service Treatment or Instructions: Discharge home. Diet as tolerated. Activity, nonstrenuous. Follow-up with me in 2-3 weeks. Warm soapy sitz baths twice daily. Fiber supplement twice daily. Stool softeners as needed. Referrals: SAMUEL FLANAGAN MD [ACTIVE STAFF] - 11/11/18 8:45 am Respiratory Treatments at Home: Deep Breathing/Coughing Discharge Activity: Activity As Tolerated, Balance Activity w/Rest Home Care Assistance: None Needed Report the Following to Your Physician Immediately: Shortness of Breath, Nausea , Vomiting, Increase in Pain, Fever over 101 Degrees, Unusual Bleeding, Redness , Swelling, Increased Soreness, Large Clots, IV Site Infection Signs
--- NOTE | 2018-10-11 16:30 | Operative Report ---
Nonrecallable Operative Report DATE OF SURGERY: 10/10/18 PREOPERATIVE DIAGNOSIS: Bleeding internal hemorrhoids. POSTOPERATIVE DIAGNOSIS: Same as above. OPERATION: Rubber band ligation of internal hemorrhoids x3 SURGEON: SAMUEL FLANAGAN ANESTHESIA: LMAC TISSUE REMOVED OR ALTERED: None COMPLICATIONS: None apparent ESTIMATED BLOOD LOSS: Minimal PROCEDURE: Procedure in detail: After informed consent was obtained, the patient was brought to the operating room and laid in the left lateral decubitus position. An anoscope was inserted into the rectum, and the patient's internal hemorrhoids were identified. The patient had enlargement of internal hemorrhoids in all 3 positions (right posterior, right anterior, and left lateral). Using the anoscope to visualize the hemorrhoid columns, rubber bands were used to ligate the hemorrhoids in all 3 areas. Once the rubber bands were placed, the procedure was concluded. All sponge, instrument, and needle counts were correct x2. Condition: Stable.
== END 2018-10-10 13:30 | disposition home or self-care (01) ==
LOC: OROUT 09:40
PROVIDERS: ATTEND Surgery
DX: K64.8 Other hemorrhoids (principal); Z86.010 Personal history of colon polyps; Z88.8 Allergy status to other drugs, medicaments and biological substances
CPT/HCPCS: 46221; J2704; 902; J3010

== ENCOUNTER → 2019-01-08 | Outpatient (CLI) | payer BC ==
--- NOTE | 2019-01-08 15:51 | RADIOLOGY REPORT (SQ) ---
EXAM DESCRIPTION: CHEST PA/LATERAL COMPLETED DATE/TIME: 01/08/2019 2:55 pm REASON FOR STUDY: PRE-OP COMPARISON: 02/01/2010 EXAM PARAMETERS: NUMBER OF VIEWS: two views TECHNIQUE: Digital Frontal and Lateral radiographic views of the chest acquired. RADIATION DOSE: NA LIMITATIONS: none FINDINGS: LUNGS AND PLEURA: Findings of COPD. Scattered areas of scarring. Post surgical changes left superior mediastinum, new finding since the previous examination dated 02/01/2018. No acute pulm onary consolidation. No pneumothorax or pleural effusion. MEDIASTINUM AND HILAR STRUCTURES: No masses or contour abnormalities. HEART AND VASCULAR STRUCTURES: Heart normal size. No evidence for failure. BONES: No acute findings. HARDWARE: None in the chest. OTHER: No other significant finding. IMPRESSION: 1. Findings of COPD with scattered areas of scarring in the lungs. Post surgical manley es left superior mediastinum, new finding since the prior study dated 02/01/2010. No acute findings. TECHNICAL DOCUMENTATION: JOB ID: [id number] [employer]- All Rights Reserved Reading location - IP/workstation name: [email or web address]
[2019-01-08 16:13] LABS: HEMATOCRIT 41.5 % (37.9-51.0); HEMOGLOBIN 14.5 g/dL (13.5-17.0); MEAN CORPUSCULAR HEMOGLOBIN 30.3 pg (27.0-33.4); MEAN CORPUSCULAR VOLUME 87 fl (80-97); PLATELET COUNT 286 10^3/uL (150-450); RED BLOOD COUNT 4.78 10^6/uL (4.35-5.55); RED CELL DISTRIBUTION WIDTH 13.3 % (11.5-14.0)
[2019-01-08 16:38] LABS: ANION GAP 14 (5-19); BLOOD UREA NITROGEN 15 mg/dL (7-20); CALCIUM 9.8 mg/dL (8.4-10.2); CARBON DIOXIDE 27 mmol/L (22-30); CHLORIDE 99 mmol/L (98-107); GLUCOSE 79 mg/dL (75-110); POTASSIUM 4.7 mmol/L (3.6-5.0)
--- NOTE | 2019-01-08 19:18 | EKG REPORT ---
SEVERITY:- NORMAL ECG - SINUS RHYTHM : Confirmed by: Lucille Meadows MD 08-Jan-2019 19:17:18
== END ==
LOC: OD 14:17
PROVIDERS: ATTEND Surgery
DX: Z01.818 Encounter for other preprocedural examination (principal); R23.4 Changes in skin texture; K62.1 Rectal polyp; K64.8 Other hemorrhoids; J43.9 Emphysema, unspecified; C44.300 Unspecified malignant neoplasm of skin of unspecified part of face; M19.90 Unspecified osteoarthritis, unspecified site; G43.909 Migraine, unspecified, not intractable, without status migrainosus; Z86.010 Personal history of colon polyps; R05 Cough
CPT/HCPCS: 36415; 71046; 80048; 85027; 88305; 88312; 93005; 93010

== ENCOUNTER 2019-01-17 08:46 | Observation (INO) | payer BC ==
[~2019-01-17 08:46] MED LIST changes: +CEFOXITIN SODIUM 2 GM in DEXTROSE 5%-WATER 100 ML IV PRN; +IBUPROFEN 800 MG in NORMAL SALINE 250 ML IV PRN; -PROPOFOL INJ 200 MG/20 ML VIAL IV ONE
[2019-01-17] MEDS ORDERED: ALBUTEROL SULFATE 0.083% NEB 2.5 MG/3 ML AMPUL NEB ONE (09:15)
[2019-01-17] MEDS ORDERED: SCOPOLAMINE HYDROBROMIDE 1.5 MG PATCH.TD72 ONE (09:58)
[2019-01-17] MEDS ORDERED: FAMOTIDINE INJ/PF 20 MG/2 ML SDV IV ONE (10:18)
[2019-01-17] MEDS ORDERED: ACETAMINOPHEN 1,000 MG/100 ML RTUPB IV ONE (13:56)
[2019-01-17] MEDS ORDERED: FENTANYL CITRATE INJ/PF 250 MCG/5 ML AMPULE ONE (13:56)
[2019-01-17] MEDS ORDERED: PROPOFOL INJ 200 MG/20 ML VIAL IV ONE (13:56)
[2019-01-17] MEDS ORDERED: DEXAMETHASONE SOD PHOSPHATE INJ 4 MG/1 ML VIAL ONE (13:56)
[2019-01-17] MEDS ORDERED: ONDANSETRON HCL INJ/PF 4 MG/2 ML SDV ONE ×2 (13:56→14:11)
[2019-01-17] MEDS ORDERED: MIDAZOLAM 2 MG/2 ML INJ ONE (13:56)
[2019-01-17] MEDS ORDERED: NEOSTIGMINE METHYLSULFATE 10 MG/10 ML VIAL ONE (15:30)
[2019-01-17] MEDS ORDERED: GLYCOPYRROLATE 1 MG/5 ML SYRINGE ONE (15:30)
[2019-01-17] MEDS ORDERED: ROCURONIUM BROMIDE INJ 50 MG/5 ML VIAL IV ONE (15:30)
[2019-01-17] MEDS ORDERED: SUCCINYLCHOLINE CHLORIDE INJ 200 MG/10 ML VIAL ONE (15:30)
[2019-01-17] MEDS ORDERED: ONDANSETRON HCL INJ/PF 4 MG/2 ML SDV IV PRN (17:36)
[2019-01-17] MEDS ORDERED: AL HYDROX PO PRN (17:39)
[2019-01-17] MEDS ORDERED: MAGNESIUM CARBONATE PO PRN (17:39)
[2019-01-17] MEDS ORDERED: TRAMADOL HCL 50 MG TABLET PO PRN (17:40)
[2019-01-17] MEDS ORDERED: DIPHENHYDRAMINE HCL 50 MG/ML VIAL IV PRN (19:47)
--- NOTE | 2019-01-17 20:41 | Operative Report ---
Nonrecallable Operative Report DATE OF SURGERY: 01/17/19 PREOPERATIVE DIAGNOSIS: Recurrent tubulovillous adenoma of the rectum POSTOPERATIVE DIAGNOSIS: Same as above OPERATION: Robot-assisted minimally invasive transanal excision of rectal tumor. SURGEON: SAMUEL LEVIN TECHNICAL SUPPORT INTERNSHIP: JULIANNE MACIAS ANESTHESIA: GA TISSUE REMOVED OR ALTERED: Rectal tumor COMPLICATIONS: None apparent ESTIMATED BLOOD LOSS: Minimal PROCEDURE: Drains/implants: None. Procedure in detail: After informed consent was obtained, the patient was brought into the operating room and laid in the lithotomy position. The robot was brought over the patient. A rectal dilator was used to dilate the rectum in order to accommodate the rectal gel point device. Once the gel point device was inserted, robotic trochars were placed through the gel point and the robot was docked. The recurrent tubulovillous adenoma was found to lie at approximately 8 cm inside the rectum at the posterior left lateral wall. An incision was created in the mucosa using electrocautery, ensuring 1 cm margin around the tumor. Dissection was carried through the wall of the rectum, to the perirectal fat. The tumor was completely excised, the robot was undocked, and the specimen was extracted. The specimen was marked for pathology. Short stitch is distal margin, long stitch is left lateral margin. Once the tumor was completely removed, attention was turned to closure of the defect. The robot was again attached to the gel point device. The defect was closed transversely using 2-0 V lock suture in simple running fashion. 2 separate sutures were used, starting laterally and working medially. Once the defect was completely closed, the robot was undocked, the gel point was removed, and the procedure was concluded. All sponge, instrument, and needle counts were correct x2. The patient was then taken to the recovery room. Condition: Stable. Julianne Macias PA-C was scrubbed and present the entirety of the procedure. She assisted with all portions of the procedure including placement of the gel point device, docking of the robot, exchanging of the robotic instruments, and undocking of the robot.
[2019-01-18] MEDS ORDERED: PANTOPRAZOLE SODIUM 40 MG TABLET.DR PO SCH (10:00)
[2019-01-18] MEDS ORDERED: EZETIMIBE 10 MG TABLET PO SCH (10:00)
[2019-01-18] MEDS ORDERED: LOVASTATIN 10 MG PO SCH (10:00)
[2019-01-18] MEDS ORDERED: BISACODYL 5 MG TABEC PO SCH (10:00)
[2019-01-18 10:39] VITALS: BP 112/77
--- NOTE | 2019-01-18 10:46 | PDOC DISCHARGE SUMMARY ---
General - Admit/Disc Date/PCP Admission Date/Primary Care Provider: TIERRA ARAIZA MD Discharge Date: 01/18/19 - Discharge Diagnosis (1) Tubulovillous adenoma of rectum Is this a current diagnosis for this admission?: Yes - Additional Information Discharge Diet: As Tolerated Discharge Activity: Balance Activity w/Rest Home Medications: Albuterol Sulfate [Proair Hfa Inhalation Aerosol 8.5 gm Mdi] 1 puff IH QIDP PRN 01/17/19 Dexlansoprazole [Dexilant 60 mg Capsule] 60 mg PO Q6AM 01/17/19 Ezetimibe [Zetia 10 mg Tablet] 10 mg PO DAILY 01/17/19 Lovastatin [Mevacor] 10 mg PO DAILY 01/17/19 Psyllium Seed [Metamucil-Sf Powder 5.85 gm Packet] 1 packet PO DAILY 01/17/19 History of Present Illness History of Present Illness: KATINA ABRAHAM is a 58 year old male with a recurrent tubulovillous adenoma of the rectum, not amenable to endoscopic resection. The patient was brought to the hospital for definitive surgical resection of this rectal tumor. Patient was taken to the operating room where robot-assisted laparoscopic transanal minimally invasive rectal tumor resection was performed. The patient was taken to the floor in stable condition. Hospital Course Hospital Course: After surgery the patient was taken to the floor. He remained stable throughout his hospital stay. He began ambulating, tolerating a diet. he was afebrile throughout the night. On postoperative day #1 he was doing very well. His pain was controlled. It was felt that he had reached maximal hospital benefit, and was fit for discharge. Physical Exam Vital Signs: Temp Pulse Resp BP Pulse Ox 98.8 F 76 16 112/77 97 01/18/19 10:38 01/18/19 10:38 01/18/19 10:38 01/18/19 10:38 01/18/19 10:38 Intake & Output 01/17/19 01/18/19 01/19/19 06:59 06:59 06:59 Intake Total 2128 Output Total 185 Balance 194 Weight 160 kg Results Laboratory Results: 01/17/19 10:29 Blood Type A POSITIVE Antibody Screen NEGATIVE Qualifiers - * PATIENT BEING DISCHARGED WITH ANY OF THE FOLLOWING DIAGNOSIS: No Plan Discharge Plan: Discharge home. Diet as tolerated. Activity: Nonstrenuous. Follow-up with me in 7-10 days. 5% lidocaine ointment to rectum 3 times daily. Tylenol/ibuprofen for pain. Time Spent: Less than 30 Minutes
== END 2019-01-18 11:20 | disposition home or self-care (01) ==
LOC: OROUT 08:46 → EDSTATUS 11:00 → 5 17:36 → OROUT 19:04 → 5 01-18 11:20 → OROUT 01-18 11:20
PROVIDERS: ADMIT Surgery; ATTEND Surgery
PROC: 0DBP7ZX Excision of Rectum, Via Natural or Artificial Opening, Diagnostic (ICD-10-PCS; principal; 2019-01-17 11:00)
DX: D12.8 Benign neoplasm of rectum (principal); J43.9 Emphysema, unspecified; Z87.891 Personal history of nicotine dependence; Z85.828 Personal history of other malignant neoplasm of skin; Z98.890 Other specified postprocedural states; Z87.19 Personal history of other diseases of the digestive system
CPT/HCPCS: 36415; 86850; 86900; 86901; 88307; 902; 94640; J0131; J0330; J0694; J1100; J1741; J2250; J2405; J2704; J3010; J3490; J7050; S0028

== ENCOUNTER 2019-01-22 16:22 | Inpatient (IN) | payer BC ==
[2019-01-22] MEDS ORDERED: NORMAL SALINE 1000 ML 1,000 ML IV ONE (16:37)
[2019-01-22 17:05] LABS: ABSOLUTE BASOPHILS # (AUTO) 0.1 10^3/uL (0.0-0.2); ABSOLUTE EOSINOPHILS # (AUTO) 0.5 10^3/uL (0.0-0.6); ABSOLUTE LYMPHOCYTES (AUTO) 2.9 10^3/uL (0.5-4.7); ABSOLUTE MONOCYTES (AUTO) 0.7 10^3/uL (0.1-1.4); ABSOLUTE NEUT (AUTO) 7.4 10^3/uL (1.7-8.2); BASOPHILS % (AUTO) 0.9 % (0-2); EOSINOPHILS % (AUTO) 4.6 % (0-6); HEMATOCRIT 38.7 % (37.9-51.0); HEMOGLOBIN 13.4 g/dL (13.5-17.0); LYMPHOCYTES % (AUTO) 24.8 % (13-45); MEAN CORPUSCULAR HEMOGLOBIN 30.4 pg (27.0-33.4); MEAN CORPUSCULAR HGB CONC 34.5 g/dL (32.0-36.0); MEAN CORPUSCULAR VOLUME 88 fl (80-97); MONOCYTES % (AUTO) 5.7 % (3-13); PLATELET COUNT 327 10^3/uL (150-450); RED BLOOD COUNT 4.39 10^6/uL (4.35-5.55); RED CELL DISTRIBUTION WIDTH 13.1 % (11.5-14.0); TOTAL CELLS COUNTED % (AUTO) 100 %; WHITE BLOOD COUNT 11.5 10^3/uL (4.0-10.5)
[2019-01-22 17:22] LABS: ALANINE AMINOTRANSFERASE 37 U/L (21-72); ALBUMIN 4.1 g/dL (3.5-5.0); ALKALINE PHOSPHATASE 116 U/L (38-126); ANION GAP 13 (5-19); ASPARTATE AMINO TRANSFERASE 28 U/L (17-59); BILIRUBIN,DIRECT 0.3 mg/dL (0.0-0.4); BILIRUBIN,TOTAL 0.3 mg/dL (0.2-1.3); BLOOD UREA NITROGEN 16 mg/dL (7-20); CALCIUM 9.7 mg/dL (8.4-10.2); CARBON DIOXIDE 25 mmol/L (22-30); CHLORIDE 101 mmol/L (98-107); GLUCOSE 174 mg/dL (75-110); POTASSIUM 4.3 mmol/L (3.6-5.0); SODIUM 139.3 mmol/L (137-145); TOTAL PROTEIN 7.1 g/dL (6.3-8.2)
--- NOTE | 2019-01-22 18:34 | ER Document Report ---
ED General - General Chief Complaint: Abdominal Pain Stated Complaint: ABDOMINAL PAIN Time Seen by Provider: 01/22/19 16:31 Mode of Arrival: Ambulatory Information source: Patient Notes: This is a 58-year-old man with a history of COPD, GERD, tubulovillous anal adenoma on 01/17 who presents to the emergency room with left lower quadrant abdominal pain starting this morning. Patient does state he has had a history of diverticulitis and he had a similar episode a week before surgery and had Bactrim with resolution of symptoms. He states that the pain is gotten significantly worse. He denies any fever. TRAVEL OUTSIDE OF THE [place] IN LAST 30 DAYS: No - HPI Onset: This morning Onset/Duration: Gradual Quality of pain: Dull Pain Level: 3 Associated symptoms: Other - Patient has had loose stools: Is been taking stool softeners since the surgery.. denies: Fever, Vomiting Exacerbated by: Movement Relieved by: Remaining still Similar symptoms previously: Yes Recently seen / treated by doctor: Yes - Related Data Allergies/Adverse Reactions: midazolam [From Versed] Adverse Reaction (Verified 10/09/18 14:09) VOMITING Past Medical History - General Information source: Patient - Social History Smoking Status: Former Smoker Cigarette use (# per day): No Chew tobacco use (# tins/day): No Frequency of alcohol use: Rare Drug Abuse: None Lives with: Spouse/Significant other Family History: Hyperlipidemia, Hypertension Patient has suicidal ideation: No Patient has homicidal ideation: No - Past Medical History Cardiac Medical History: Denies: Hx Coronary Artery Disease - CHOLESTEROL, Hx Heart Attack, Hx Hypertension Pulmonary Medical History: Reports: Hx Bronchitis, Hx COPD, Hx Pneumonia Denies: Hx Asthma Neurological Medical History: Denies: Hx Cerebrovascular Accident, Hx Seizures Renal/ Medical History: Reports: Hx Kidney Stones. Denies: Hx Peritoneal Dialysis Malignancy Medical History: Reports Other - Anal mass GI Medical History: Reports: None Musculoskeletal Medical History: Reports Hx Arthritis Psychiatric Medical History: Reports: None Traumatic Medical History: Reports: None Infectious Medical History: Reports: None Past Surgical History: Reports: Hx Abdominal Surgery - anal tumor resection, Other - Bleb removal from left lung in April and right lung in May.. Denies: Hx Pacemaker - Immunizations Hx Diphtheria, Pertussis, Tetanus Vaccination: No Hx Pneumococcal Vaccination: 11/05/00 Review of Systems - Review of Systems Constitutional: denies: Chills, Fever EENT: No symptoms reported Cardiovascular: denies: Chest pain, Palpitations, Heart racing Gastrointestinal: Abdominal pain, Nausea. denies: Vomiting Genitourinary: denies: Dysuria, Frequency, Hematuria Male Genitourinary: No symptoms reported Musculoskeletal: No symptoms reported Skin: No symptoms reported Hematologic/Lymphatic: No symptoms reported Neurological/Psychological: No symptoms reported Physical Exam - Vital signs Vitals: Temp Pulse Resp BP Pulse Ox 98.4 F 97 16 154/77 H 95 01/22/19 16:28 01/22/19 16:28 01/22/19 16:28 01/22/19 16:28 01/22/19 16:28 Notes: Physical exam: GENERAL: Patient is alert and oriented x3, he does appear in some distress and complains of left lower quadrant abdominal pain. HEAD: Atraumatic, normocephalic. EYES: Pupils equal round and reactive to light, extraocular movements intact, sclera anicteric, conjunctiva are normal. ENT: TMs normal, nares patent, oropharynx clear without exudates. Moist mucous membranes. NECK: Normal range of motion, supple without obvious mass or JVD. LUNGS: Breath sounds clear to auscultation bilaterally and equal. No wheezes rales or rhonchi. HEART: Regular rate and rhythm without murmurs, rubs or gallops. ABDOMEN: Soft, normoactive bowel sounds. Patient does have left lower quadrant tenderness with mild guarding, no rebound, no masses. Rectum: No obvious bleeding from recent surgical site. EXTREMITIES: Normal range of motion, no pitting or edema. No clubbing or cyanosis. NEUROLOGICAL: Cranial nerves II through XII grossly intact. Normal speech, moving all extremities. PSYCH: Normal mood, normal affect. SKIN: Warm, Dry, normal turgor, no rashes or lesions noted. Course - Re-evaluation Re-evalutation: 01/22/19 21:32 Note: I reexamined the patient and he still remains quite tender in the left lower quadrant and states he is very uncomfortable. CT does not show any perforation but does show diverticulitis. The plan will be for bowel rest, IV fluids, IV antibiotics and admission. I spoke to Dr. Osborn who is willing to admit him. - Vital Signs Vital signs: Temp Pulse Resp BP Pulse Ox 98.6 F 84 16 135/76 H 96 01/23/19 00:07 01/23/19 01:00 01/23/19 00:07 01/23/19 00:07 01/23/19 00:07 - Laboratory Result Diagrams: 01/22/19 16:40 01/22/19 16:40 Laboratory results interpreted by me: 01/22/19 01/22/19 01/22/19 16:40 16:40 18:35 WBC 11.5 H Hgb 13.4 L Glucose 174 H Urine Glucose (UA) 50 H - Diagnostic Test Radiology reviewed: Image reviewed, Reports reviewed - CT of the abdomen shows diverticulitis Discharge - Discharge Clinical Impression: Acute diverticulitis Condition: Stable Disposition: ADMITTED INPATIENT Admitting Provider: Surgicalist - Dr. Osborn Unit Admitted: Surgical Floor
[2019-01-22 19:10] LABS: APPEARANCE,URINE CLEAR; BILIRUBIN,URINE NEGATIVE (NEGATIVE); COLOR,URINE STRAW; GLUCOSE, URINE 50 mg/dL (NEGATIVE); KETONES,URINE NEGATIVE (NEGATIVE); LEUKOCYTE ESTERASE,URINE NEGATIVE (NEGATIVE); NITRITE,URINE NEGATIVE (NEGATIVE); PROTEIN,URINE NEGATIVE (NEGATIVE); UROBILINOGEN,URINE NEGATIVE mg/dL (<2.0)
--- NOTE | 2019-01-22 19:48 | RADIOLOGY REPORT (SQ) ---
EXAM DESCRIPTION: CT ABD/PELVIS WITH IV ORAL COMPLETED DATE/TIME: 01/22/2019 7:31 pm REASON FOR STUDY: New pain 5 days post rectal tumor resection COMPARISON: None. TECHNIQUE: CT scan of the abdomen and pelvis performed using helical scanning technique with dynamic intravenous contrast injection. Oral contrast. Images reviewed with lung, soft tissue, and bone win dows. Reconstructed coronal and sagittal MPR images reviewed. Delayed images for evaluation of the ur inary system also acquired. All images stored on PACS. All CT scanners at this facility use dose modulation, iterative reconstruction, and/or weight based d osing when appropriate to reduce radiation dose to as low as reasonably achievable (ALARA). [facility]: Dose Right [facility]: CareDose [facility]: Dose Right [facility]: Teradose 4D [facility]: Sourcebits CONTRAST TYPE AND DOSE: contrast/concentration: Isovue 350.00 mg/ml; Total Contrast Delivered: 90.0 ml; Total Saline Delivered: 70.0 ml RENAL FUNCTION: BUN 16 creatinine 1.05 RADIATION DOSE: CT Rad equipment meets quality standard of care and radiation dose reduction techniq ues were employed. CTDIvol: 9.8 - 13.9 mGy. DLP: 1242 mGy-cm.. LIMITATIONS: None. FINDINGS: LOWER CHEST: No significant findings. No nodules or infiltrates. LIVER: Normal size. No masses. No dilated ducts. SPLEEN: Normal size. No focal lesions. PANCREAS: No masses. No significant calcifications. No adjacent inflammation or peripancreatic fluid collections. Pancreatic duct not dilated. GALLBLADDER: No identified stones by CT criteria. No inflammatory changes to suggest cholecystitis. ADRENAL GLANDS: No significant masses or asymmetry. RIGHT KIDNEY AND URETER: No solid masses. No significant calcifications. No hydronephrosis or hyd roureter. LEFT KIDNEY AND URETER: No solid masses. No significant calcifications. No hydronephrosis or hydr oureter. AORTA AND VESSELS: No aneurysm. No dissection. Renal arteries, SMA, celiac without stenosis. RETROPERITONEUM: No retroperitoneal adenopathy, hemorrhage or masses. BOWEL AND PERITONEAL CAVITY: Descending and sigmoid diverticulosis. Mild stranding in the fat around the descending colon. APPENDIX: Normal. PELVIS: No mass. No free fluid. Normal bladder. ABDOMINAL WALL: No masses. No hernias. BONES: No significant or acute findings. OTHER: No other significant finding. IMPRESSION: Diverticulosis coli with mild diverticulitis in the descending colon. TECHNICAL DOCUMENTATION: JOB ID: [id number] Quality ID # [id number]: Final reports with documentation of one or more dose reduction techniques (e.g., Au tomated exposure control, adjustment of the mA and/or kV according to patient size, use of iterative reconstruction technique) 2010 [employer]- All Rights Reserved Reading location - IP/workstation name: [email or web address]
[2019-01-22] MEDS ORDERED: MORPHINE SULFATE 10 MG/ML INJ IV ONE (21:27)
[2019-01-22] MEDS ORDERED: CIPROFLOXACIN 400 MG/D5W RTU 400 MG/200 ML RTUPB IV ONE (21:27)
[2019-01-22] MEDS ORDERED: ONDANSETRON HCL INJ/PF 4 MG/2 ML SDV IV ONE (21:27)
[2019-01-22] MEDS ORDERED: METRONIDAZOLE 500 MG/NS RTU 100 ML IV ONE (21:28)
[2019-01-22] MEDS ORDERED: ONDANSETRON HCL INJ/PF 4 MG/2 ML SDV IV PRN (21:33)
[2019-01-22] MEDS: CIPROFLOXACIN 400 MG/D5W RTU 400 MG/200 ML RTUPB IV SCH (21:48)
[2019-01-22] MEDS: METRONIDAZOLE 500 MG/NS RTU 500 MG/100 ML RTUPB IV SCH (22:44)
[2019-01-23] MEDS: DEXTROSE 5%-LACTATED RINGERS 1,000 ML IV PRN ×2 (00:33→21:33)
[2019-01-23] MEDS: MORPHINE SULFATE 10 MG/ML INJ IV PRN ×3 (04:34→15:08)
[2019-01-23] MEDS: METRONIDAZOLE 500 MG/NS RTU 500 MG/100 ML RTUPB IV SCH ×3 (05:03→21:20)
--- NOTE | 2019-01-23 06:19 | PDOC H&P ---
History of Present Illness Admission Date/PCP: 01/22/19 21:36 TIERRA ARAIZA MD History of Present Illness: KATINA ABRAHAM is a 58 year old male with a history of recurrent episodes of diverticulitis. The patient was treated most recently over the last 1-2 weeks with outpatient oral antibiotics. The patient's left lower quadrant pain has worsened and intensified. The patient presents to the ER for treatment. Of note, the patient also recently underwent excision of a rectal tumor. The patient reports left lower quadrant abdominal pain that has slowly worsened over time. His antibiotics did not work. The pain is dull and constant. He does feel a cramping sensation in the left lower quadrant. He rates his pain as 6 out of 10. Nothing makes his pain better or worse. The patient denies chest pain, shortness of breath, fevers, chills, nausea, vomiting, headache, dizzi ness, orthostasis, blurry vision, malaise, fatigue, melena, hematemesis. Past Medical History Cardiac Medical History: Denies: Coronary Artery Disease - CHOLESTEROL, Myocardial Infarction, Hypertension Pulmonary Medical History: Reports: Bronchitis, Chronic Obstructive Pulmonary Disease (COPD), Pneumonia Denies: Asthma Neurological Medical History: Denies: Seizures Malignancy Medical History: Reports: Other - Anal mass GI Medical History: Reports: None Musculoskeltal Medical History: Reports: Arthritis Psychiatric Medical History: Reports: None Traumatic Medical History: Reports: None Hematology: Denies: Anemia Infectious Medical History: Reports: None Past Surgical History Past Surgical History: Reports: Other - Bilateral bleb resection (lung). Transanal excision of rectal tumor. Denies: Pacemaker Social History Lives with: Spouse/Significant other Smoking Status: Former Smoker Frequency of Alcohol Use: Rare Hx Recreational Drug Use: No Drugs: None Hx Prescription Drug Abuse: No Family History Family History: Hyperlipidemia, Hypertension Parental Family History Reviewed: Yes Children Family History Reviewed: Yes Sibling(s) Family History Reviewed.: Yes Medication/Allergy Home Medications: Albuterol Sulfate [Proair Hfa Inhalation Aerosol 8.5 gm Mdi] 1 puff IH QIDP PRN 01/22/19 Dexlansoprazole [Dexilant 60 mg Capsule] 60 mg PO DAILY 01/22/19 Ezetimibe [Zetia 10 mg Tablet] 10 mg PO DAILY 01/22/19 Lovastatin [Mevacor] 10 mg PO DAILY 01/22/19 Allergies/Adverse Reactions: midazolam [From Versed] Adverse Reaction (Verified 10/09/18 14:09) VOMITING Review of Systems Constitutional: ABSENT: anorexia, chills, fatigue, fever(s), headache(s) Eyes: ABSENT: visual disturbances Ears: ABSENT: hearing changes Nose, Mouth, and Throat: ABSENT: mouth pain, sore throat Cardiovascular: ABSENT: chest pain, dyspnea on exertion, palpitations Respiratory: ABSENT: cough, dyspnea Gastrointestinal: PRESENT: abdominal pain, bloating, constipation. ABSENT: melena, nausea, vomiting Genitourinary: ABSENT: dysuria Musculoskeletal: ABSENT: back pain Integumentary: ABSENT: pruritus, rash Neurological: ABSENT: confusion, convulsions, dizziness Psychiatric: ABSENT: anxiety, depression Endocrine: ABSENT: cold intolerance, heat intolerance Hematologic/Lymphatic: ABSENT: easy bleeding, easy bruising Physical Exam Vital Signs: Temp Pulse Resp BP Pulse Ox 98.4 F 97 16 154/77 H 95 01/22/19 16:28 01/22/19 16:28 01/22/19 16:28 01/22/19 16:28 01/22/19 16:28 Intake & Output 01/21/19 01/22/19 01/23/19 06:59 06:59 06:59 Intake Total 1000 Balance 1000 Weight 79 kg General appearance: PRESENT: no acute distress, cooperative Head exam: PRESENT: atraumatic, normocephalic Eye exam: PRESENT: EOMI, PERRLA. ABSENT: scleral icterus Mouth exam: PRESENT: moist, neck supple Neck exam: ABSENT: meningismus, tenderness, thyromegaly, tracheal deviation Respiratory exam: PRESENT: clear to auscultation olivia, unlabored. ABSENT: chest wall tenderness, tachypnea, wheezes Cardiovascular exam: PRESENT: RRR Pulses: PRESENT: normal radial pulses Vascular exam: PRESENT: normal capillary refill. ABSENT: pallor GI/Abdominal exam: PRESENT: guarding - Mild voluntary guarding in the left lower quadrant, soft, tenderness - Left lower quadrant. ABSENT: distended, rebound, rigid Rectal exam: PRESENT: deferred Extremities exam: ABSENT: clubbing Musculoskeletal exam: ABSENT: deformity Neurological exam: PRESENT: alert, awake, oriented to person, oriented to place, oriented to time, oriented to situation. ABSENT: CN II-XII grossly intact Psychiatric exam: ABSENT: agitated, anxious, depressed Focused psych exam: ABSENT: delusional Skin exam: ABSENT: cyanosis, erythema, jaundice Results Laboratory Results: 01/22/19 16:40 01/22/19 16:40 01/22/19 01/22/19 01/22/19 16:40 16:40 18:35 WBC 11.5 H RBC 4.39 Hgb 13.4 L Hct 38.7 MCV 88 MCH 30.4 MCHC 34.5 RDW 13.1 Plt Count 327 Seg Neutrophils % 64.0 Lymphocytes % 24.8 Monocytes % 5.7 Eosinophils % 4.6 Basophils % 0.9 Absolute Neutrophils 7.4 Absolute Lymphocytes 2.9 Absolute Monocytes 0.7 Absolute Eosinophils 0.5 Absolute Basophils 0.1 Sodium 139.3 Potassium 4.3 Chloride 101 Carbon Dioxide 25 Anion Gap 13 BUN 16 Creatinine 1.05 Est GFR ( Amer) > 60 Est GFR (Non-Af Amer) > 60 Glucose 174 H Calcium 9.7 Total Bilirubin 0.3 AST 28 ALT 37 Alkaline Phosphatase 116 Total Protein 7.1 Albumin 4.1 Urine Color STRAW Urine Appearance CLEAR Urine pH 6.0 Ur Specific [place] 1.010 Urine Protein NEGATIVE Urine Glucose (UA) 50 H Urine Ketones NEGATIVE Urine Blood NEGATIVE Urine Nitrite NEGATIVE Ur Leukocyte Esterase NEGATIVE Urine WBC (Auto) 0 Urine RBC (Auto) 0 Impressions: Abdomen/Pelvis CT 01/22/19 16:36 IMPRESSION: Diverticulosis coli with mild diverticulitis in the descending colon. Assessment & Plan - Diagnosis (1) Sigmoid diverticulitis Is this a current diagnosis for this admission?: Yes - Plan Summary Plan Summary: Is a 58-year-old male with recurrent bouts of sigmoid diverticulitis. CT scan has confirmed this diagnosis today. His pain is in the left lower quadrant, and did not improve with oral antibiotics at home. I will admit the patient to the hospital and start intravenous antibiotics. I will also start pain medications. Hopefully the patient's symptoms will defervesced quickly. The patient may require surgery if no improvement is seen. This is been discussed with the patient at length.
[2019-01-23 06:59] LABS: ABSOLUTE BASOPHILS # (AUTO) 0.1 10^3/uL (0.0-0.2); ABSOLUTE EOSINOPHILS # (AUTO) 0.3 10^3/uL (0.0-0.6); ABSOLUTE LYMPHOCYTES (AUTO) 2.1 10^3/uL (0.5-4.7); ABSOLUTE MONOCYTES (AUTO) 0.9 10^3/uL (0.1-1.4); ABSOLUTE NEUT (AUTO) 7.3 10^3/uL (1.7-8.2); BASOPHILS % (AUTO) 0.9 % (0-2); HEMATOCRIT 34.1 % (37.9-51.0); HEMOGLOBIN 11.8 g/dL (13.5-17.0); LYMPHOCYTES % (AUTO) 19.7 % (13-45); MEAN CORPUSCULAR HEMOGLOBIN 30.3 pg (27.0-33.4); MEAN CORPUSCULAR HGB CONC 34.5 g/dL (32.0-36.0); MEAN CORPUSCULAR VOLUME 88 fl (80-97); MONOCYTES % (AUTO) 8.2 % (3-13); PLATELET COUNT 276 10^3/uL (150-450); RED BLOOD COUNT 3.88 10^6/uL (4.35-5.55); RED CELL DISTRIBUTION WIDTH 13.1 % (11.5-14.0); SEGMENTED NEUTROPHILS % (AUTO) 68.2 % (42-78); TOTAL CELLS COUNTED % (AUTO) 100 %; WHITE BLOOD COUNT 10.7 10^3/uL (4.0-10.5)
[2019-01-23 07:28] LABS: ANION GAP 9 (5-19); BLOOD UREA NITROGEN 10 mg/dL (7-20); CALCIUM 9.1 mg/dL (8.4-10.2); CARBON DIOXIDE 25 mmol/L (22-30); CHLORIDE 101 mmol/L (98-107); GLUCOSE 120 mg/dL (75-110); POTASSIUM 4.7 mmol/L (3.6-5.0); SODIUM 135.3 mmol/L (137-145)
[2019-01-23] MEDS ORDERED: FAMOTIDINE INJ/PF 20 MG/2 ML SDV IV ONE (08:05)
[2019-01-23] MEDS ORDERED: ALBUTEROL SULFATE HFA (90 MCG/PUFF) 200 PUFF/8.5 GM MDI IH PRN (09:15)
--- NOTE | 2019-01-23 09:18 | PDOC PROGRESS REPORT ---
Subjective Progress Note for:: 01/23/19 Subjective:: This is a 58-year-old male with sigmoid diverticulitis. The patient reports that his pain is slowly improving. He denies fevers, chills, nausea, vomiting, chest pain, dizziness, orthostasis, fatigue, malaise, blurry vision. Reason For Visit: ACUTE DIVERTICLITIS Physical Exam Vital Signs: Temp Pulse Resp BP Pulse Ox 99.1 F 86 18 113/54 L 96 01/23/19 04:48 01/23/19 04:48 01/23/19 04:48 01/23/19 04:48 01/23/19 04:48 Intake & Output 01/22/19 01/23/19 01/24/19 06:59 06:59 06:59 Intake Total 2140 Balance 2140 Weight 74 kg General appearance: PRESENT: no acute distress Head exam: PRESENT: atraumatic, normocephalic Eye exam: PRESENT: EOMI, PERRLA Mouth exam: PRESENT: moist, neck supple Teeth exam: ABSENT: poor dentation Neck exam: ABSENT: meningismus, tenderness, thyromegaly, tracheal deviation Respiratory exam: PRESENT: clear to auscultation olivia, unlabored. ABSENT: tachypnea, wheezes Cardiovascular exam: PRESENT: RRR Pulses: PRESENT: normal radial pulses Vascular exam: PRESENT: normal capillary refill. ABSENT: pallor GI/Abdominal exam: PRESENT: soft. ABSENT: distended, firm, tenderness - Mild left lower quadrant Rectal exam: PRESENT: deferred Extremities exam: ABSENT: clubbing Musculoskeletal exam: ABSENT: deformity Neurological exam: PRESENT: alert, awake, oriented to person, oriented to place, oriented to time, oriented to situation, CN II-XII grossly intact Psychiatric exam: ABSENT: agitated, anxious, depressed Focused psych exam: ABSENT: delusional Skin exam: ABSENT: cyanosis, erythema, jaundice Results Laboratory Results: 01/23/19 06:44 01/23/19 06:44 01/22/19 01/22/19 01/22/19 16:40 16:40 18:35 WBC 11.5 H RBC 4.39 Hgb 13.4 L Hct 38.7 MCV 88 MCH 30.4 MCHC 34.5 RDW 13.1 Plt Count 327 Seg Neutrophils % 64.0 Lymphocytes % 24.8 Monocytes % 5.7 Eosinophils % 4.6 Basophils % 0.9 Absolute Neutrophils 7.4 Absolute Lymphocytes 2.9 Absolute Monocytes 0.7 Absolute Eosinophils 0.5 Absolute Basophils 0.1 Sodium 139.3 Potassium 4.3 Chloride 101 Carbon Dioxide 25 Anion Gap 13 BUN 16 Creatinine 1.05 Est GFR ( Amer) > 60 Est GFR (Non-Af Amer) > 60 Glucose 174 H Calcium 9.7 Total Bilirubin 0.3 AST 28 ALT 37 Alkaline Phosphatase 116 Total Protein 7.1 Albumin 4.1 Urine Color STRAW Urine Appearance CLEAR Urine pH 6.0 Ur Specific [place] 1.010 Urine Protein NEGATIVE Urine Glucose (UA) 50 H Urine Ketones NEGATIVE Urine Blood NEGATIVE Urine Nitrite NEGATIVE Ur Leukocyte Esterase NEGATIVE Urine WBC (Auto) 0 Urine RBC (Auto) 0 01/23/19 01/23/19 06:44 06:44 WBC 10.7 H RBC 3.88 L Hgb 11.8 L Hct 34.1 L MCV 88 MCH 30.3 MCHC 34.5 RDW 13.1 Plt Count 276 Seg Neutrophils % 68.2 Lymphocytes % 19.7 Monocytes % 8.2 Eosinophils % 3.0 Basophils % 0.9 Absolute Neutrophils 7.3 Absolute Lymphocytes 2.1 Absolute Monocytes 0.9 Absolute Eosinophils 0.3 Absolute Basophils 0.1 Sodium 135.3 L Potassium 4.7 Chloride 101 Carbon Dioxide 25 Anion Gap 9 BUN 10 Creatinine 0.85 Est GFR ( Amer) > 60 Est GFR (Non-Af Amer) > 60 Glucose 120 H Calcium 9.1 Total Bilirubin AST ALT Alkaline Phosphatase Total Protein Albumin Urine Color Urine Appearance Urine pH Ur Specific [place] Urine Protein Urine Glucose (UA) Urine Ketones Urine Blood Urine Nitrite Ur Leukocyte Esterase Urine WBC (Auto) Urine RBC (Auto) Impressions: Abdomen/Pelvis CT 01/22/19 16:36 IMPRESSION: Diverticulosis coli with mild diverticulitis in the descending colon. Assessment & Plan - Diagnosis (1) Sigmoid diverticulitis Is this a current diagnosis for this admission?: Yes - Plan Summary Plan Summary: There is a 58-year-old male with sigmoid diverticulitis, confirmed with CAT scan. He feels somewhat better today with antibiotics and pain medications. I will add Toradol to improve his pain control. The patient has been afebrile. I will continue with conservative therapy for now. Continue Cipro and Flagyl. Ambulate. Pulmonary toilet.
[2019-01-23] MEDS: CIPROFLOXACIN 400 MG/D5W RTU 400 MG/200 ML RTUPB IV SCH ×2 (09:46→21:22)
[2019-01-23] MEDS ORDERED: (PENDING PHARMACY ID) (Lovastatin [Mevacor] 10 MG) PO SCH (10:00)
[2019-01-23] MEDS: FAMOTIDINE INJ/PF 20 MG/2 ML SDV IV SCH ×2 (11:59→21:20)
[2019-01-23] MEDS ORDERED: KETOROLAC TROMETHAMINE INJ/PF 30 MG/1 ML SDV ONE (12:29)
[2019-01-23] MEDS: EZETIMIBE 10 MG TABLET PO SCH (12:42)
[2019-01-23] MEDS: PANTOPRAZOLE SODIUM 40 MG TABLET.DR PO SCH (12:42)
[2019-01-23] MEDS: KETOROLAC TROMETHAMINE INJ/PF 30 MG/1 ML SDV IV SCH ×3 (13:13→21:28)
[2019-01-23] MEDS: DOCUSATE SODIUM 100 MG CAPSULE PO SCH ×2 (15:13→18:03)
[2019-01-23] MEDS ORDERED: PROMETHAZINE HCL INJ 25 MG/1 ML VIAL IV PRN (18:32)
[2019-01-23] MEDS ORDERED: PROMETHAZINE HCL INJ 25 MG/1 ML VIAL ONE (18:34)
[2019-01-23] MEDS: ACETAMINOPHEN 1,000 MG/100 ML RTUPB IV SCH (19:00)
[2019-01-24] MEDS: ACETAMINOPHEN 1,000 MG/100 ML RTUPB IV SCH ×4 (02:00→17:52)
[2019-01-24] MEDS: METRONIDAZOLE 500 MG/NS RTU 500 MG/100 ML RTUPB IV SCH ×3 (05:46→22:15)
[2019-01-24] MEDS: KETOROLAC TROMETHAMINE INJ/PF 30 MG/1 ML SDV IV SCH ×3 (05:47→22:15)
[2019-01-24 09:24] LABS: ABSOLUTE BASOPHILS # (AUTO) 0.1 10^3/uL (0.0-0.2); ABSOLUTE EOSINOPHILS # (AUTO) 0.4 10^3/uL (0.0-0.6); ABSOLUTE LYMPHOCYTES (AUTO) 2.4 10^3/uL (0.5-4.7); ABSOLUTE MONOCYTES (AUTO) 0.5 10^3/uL (0.1-1.4); ABSOLUTE NEUT (AUTO) 4.6 10^3/uL (1.7-8.2); BASOPHILS % (AUTO) 0.9 % (0-2); EOSINOPHILS % (AUTO) 5.2 % (0-6); HEMOGLOBIN 12.3 g/dL (13.5-17.0); LYMPHOCYTES % (AUTO) 30.2 % (13-45); MEAN CORPUSCULAR HEMOGLOBIN 30.7 pg (27.0-33.4); MEAN CORPUSCULAR HGB CONC 35.1 g/dL (32.0-36.0); MEAN CORPUSCULAR VOLUME 88 fl (80-97); MONOCYTES % (AUTO) 6.1 % (3-13); PLATELET COUNT 292 10^3/uL (150-450); RED CELL DISTRIBUTION WIDTH 12.9 % (11.5-14.0); SEGMENTED NEUTROPHILS % (AUTO) 57.6 % (42-78); TOTAL CELLS COUNTED % (AUTO) 100 %
[2019-01-24] MEDS: PANTOPRAZOLE SODIUM 40 MG TABLET.DR PO SCH (10:10)
[2019-01-24] MEDS: DOCUSATE SODIUM 100 MG CAPSULE PO SCH ×2 (10:10→17:53)
[2019-01-24] MEDS: FAMOTIDINE INJ/PF 20 MG/2 ML SDV IV SCH ×2 (10:10→22:14)
[2019-01-24] MEDS: EZETIMIBE 10 MG TABLET PO SCH (10:10)
[2019-01-24] MEDS: CIPROFLOXACIN 400 MG/D5W RTU 400 MG/200 ML RTUPB IV SCH ×2 (10:11→22:16)
--- NOTE | 2019-01-24 14:33 | PDOC PROGRESS REPORT ---
Subjective Progress Note for:: 01/24/19 Subjective:: This is a 58-year-old male with sigmoid diverticulitis. He again reports that his pain is slowly improving. He denies fevers, chills, nausea, vomiting, chest pain, dizziness, orthostasis, fatigue, malaise, blurry vision. Reason For Visit: ACUTE DIVERTICLITIS Physical Exam Vital Signs: Temp Pulse Resp BP Pulse Ox 97.7 F 75 18 117/63 97 01/24/19 07:46 01/24/19 07:46 01/24/19 07:46 01/24/19 07:46 01/24/19 07:46 Intake & Output 01/23/19 01/24/19 01/25/19 06:59 06:59 06:59 Intake Total 2140 1600 100 Balance 2140 1600 100 Weight 74 kg General appearance: PRESENT: no acute distress, cooperative Head exam: PRESENT: atraumatic, normocephalic Eye exam: PRESENT: EOMI, PERRLA. ABSENT: scleral icterus Mouth exam: PRESENT: moist, neck supple Neck exam: ABSENT: meningismus, tenderness, thyromegaly, tracheal deviation Respiratory exam: PRESENT: unlabored. ABSENT: chest wall tenderness, wheezes Cardiovascular exam: PRESENT: RRR Pulses: PRESENT: normal radial pulses Vascular exam: PRESENT: normal capillary refill GI/Abdominal exam: PRESENT: tenderness - mild LLQ. ABSENT: firm, guarding, hernia Rectal exam: PRESENT: deferred Extremities exam: ABSENT: clubbing Musculoskeletal exam: ABSENT: deformity Neurological exam: PRESENT: alert, awake, oriented to person, oriented to place, oriented to time, oriented to situation Psychiatric exam: ABSENT: agitated, anxious, depressed Focused psych exam: ABSENT: delusional Skin exam: ABSENT: cyanosis, erythema, jaundice Results Laboratory Results: 01/24/19 09:12 01/23/19 06:44 01/24/19 09:12 WBC 8.0 RBC 4.00 L Hgb 12.3 L Hct 35.0 L MCV 88 MCH 30.7 MCHC 35.1 RDW 12.9 Plt Count 292 Seg Neutrophils % 57.6 Lymphocytes % 30.2 Monocytes % 6.1 Eosinophils % 5.2 Basophils % 0.9 Absolute Neutrophils 4.6 Absolute Lymphocytes 2.4 Absolute Monocytes 0.5 Absolute Eosinophils 0.4 Absolute Basophils 0.1 Impressions: Abdomen/Pelvis CT 01/22/19 16:36 IMPRESSION: Diverticulosis coli with mild diverticulitis in the descending colon. Assessment & Plan - Diagnosis (1) Sigmoid diverticulitis Is this a current diagnosis for this admission?: Yes - Plan Summary Plan Summary: This a 58-year-old male with sigmoid diverticulitis. His pain is slowly improving. He reports nausea and dizziness with the administration of morphine. I will continue his Toradol and acetaminophen, however I have encouraged him to avoid morphine if possible. Ambulate/out of bed. Aggressive pulmonary toilet. Continue IV Cipro and Flagyl until pain has essentially resolved. Leukocytosis has resolved. He continues to be afebrile, and his vital signs are stable.
[2019-01-25] MEDS: ACETAMINOPHEN 1,000 MG/100 ML RTUPB IV SCH ×2 (02:50→09:36)
[2019-01-25] MEDS: KETOROLAC TROMETHAMINE INJ/PF 30 MG/1 ML SDV IV SCH (06:38)
[2019-01-25] MEDS: METRONIDAZOLE 500 MG/NS RTU 500 MG/100 ML RTUPB IV SCH (06:38)
[2019-01-25 06:47] LABS: ABSOLUTE BASOPHILS # (AUTO) 0.1 10^3/uL (0.0-0.2); ABSOLUTE EOSINOPHILS # (AUTO) 0.5 10^3/uL (0.0-0.6); ABSOLUTE LYMPHOCYTES (AUTO) 2.3 10^3/uL (0.5-4.7); ABSOLUTE MONOCYTES (AUTO) 0.7 10^3/uL (0.1-1.4); ABSOLUTE NEUT (AUTO) 4.4 10^3/uL (1.7-8.2); BASOPHILS % (AUTO) 1.4 % (0-2); EOSINOPHILS % (AUTO) 6.1 % (0-6); HEMATOCRIT 35.7 % (37.9-51.0); HEMOGLOBIN 12.4 g/dL (13.5-17.0); LYMPHOCYTES % (AUTO) 28.8 % (13-45); MEAN CORPUSCULAR HEMOGLOBIN 30.4 pg (27.0-33.4); MEAN CORPUSCULAR HGB CONC 34.7 g/dL (32.0-36.0); MEAN CORPUSCULAR VOLUME 88 fl (80-97); MONOCYTES % (AUTO) 8.8 % (3-13); PLATELET COUNT 279 10^3/uL (150-450); RED BLOOD COUNT 4.07 10^6/uL (4.35-5.55); SEGMENTED NEUTROPHILS % (AUTO) 54.9 % (42-78); TOTAL CELLS COUNTED % (AUTO) 100 %
[2019-01-25] MEDS: DEXTROSE 5%-LACTATED RINGERS 1,000 ML IV PRN ×2 (08:17→08:18)
[2019-01-25] MEDS: FAMOTIDINE INJ/PF 20 MG/2 ML SDV IV SCH (09:37)
[2019-01-25] MEDS: CIPROFLOXACIN 400 MG/D5W RTU 400 MG/200 ML RTUPB IV SCH (09:37)
[2019-01-25] MEDS: DOCUSATE SODIUM 100 MG CAPSULE PO SCH (09:38)
[2019-01-25] MEDS: EZETIMIBE 10 MG TABLET PO SCH (09:38)
[2019-01-25] MEDS: PANTOPRAZOLE SODIUM 40 MG TABLET.DR PO SCH (09:39)
[2019-01-25 10:57] VITALS: BP 121/70
--- NOTE | 2019-01-28 16:28 | Discharge Summary ---
Discharge Summary (SDC) - Discharge Final Diagnosis: divertiulitis Condition: Good Treatment or Instructions: cont oral antibiotics, f/u with Dr Osborn on sunday Referrals: TIERRA ARAIZA MD [Primary Care Provider] - Follow up as needed Discharge Diet: Regular Discharge Activity: Activity As Tolerated Report the Following to Your Physician Immediately: Nausea, Vomiting, Increase in Pain
== END 2019-01-25 12:10 | disposition home or self-care (01) | DRG 392 ==
LOC: ER 16:22 → EH 21:36 → 2N 23:59
PROVIDERS: ADMIT Surgery; ATTEND Surgery
DX: K57.32 Diverticulitis of large intestine without perforation or abscess without bleeding (principal); J44.9 Chronic obstructive pulmonary disease, unspecified; K21.9 Gastro-esophageal reflux disease without esophagitis; Z87.891 Personal history of nicotine dependence
CPT/HCPCS: 36415; 74177; 80048; 80053; 81001; 85025; 87040; 96360; 99285; J0131; J0744; J1885; J2270; J2405; J2550; J3490; J7030; S0028

== ENCOUNTER 2019-10-10 13:11 | Day surgery (SDC) | payer BC ==
[~2019-10-10 13:11] MED LIST changes: -CEFOXITIN SODIUM 2 GM in DEXTROSE 5%-WATER 100 ML IV PRN; -IBUPROFEN 800 MG in NORMAL SALINE 250 ML IV PRN; +METOCLOPRAMIDE HCL INJ/PF 10 MG/2 ML SDV ONE
[2019-10-10] MEDS ORDERED: ALBUTEROL SULFATE 0.083% NEB 2.5 MG/3 ML AMPUL NEB ONE (14:22)
[2019-10-10] MEDS ORDERED: ALBUTEROL SULFATE 0.083% NEB 2.5 MG/3 ML AMPUL NEB PRN (14:26)
[2019-10-10 14:29] LABS: HEMOGLOBIN 13.2 g/dL (13.5-17.0); MEAN CORPUSCULAR HEMOGLOBIN 30.8 pg (27.0-33.4); MEAN CORPUSCULAR HGB CONC 34.7 g/dL (32.0-36.0); MEAN CORPUSCULAR VOLUME 89 fl (80-97); PLATELET COUNT 223 10^3/uL (150-450); RED BLOOD COUNT 4.28 10^6/uL (4.35-5.55); WHITE BLOOD COUNT 7.8 10^3/uL (4.0-10.5)
[2019-10-10 14:51] LABS: ANION GAP 8 (5-19); BLOOD UREA NITROGEN 15 mg/dL (7-20); CALCIUM 9.4 mg/dL (8.4-10.2); CARBON DIOXIDE 28 mmol/L (22-30); CHLORIDE 103 mmol/L (98-107); GLUCOSE 91 mg/dL (75-110); POTASSIUM 4.5 mmol/L (3.6-5.0)
[2019-10-10] MEDS ORDERED: LIDOCAINE 2% JELLY 30 ML TUBE ONE (15:00)
[2019-10-10] MEDS ORDERED: FENTANYL CITRATE INJ/PF 100 MCG/2 ML AMPUL ONE (15:05)
[2019-10-10] MEDS ORDERED: ONDANSETRON HCL INJ/PF 4 MG/2 ML SDV ONE (15:05)
[2019-10-10] MEDS ORDERED: PROPOFOL INJ 200 MG/20 ML VIAL IV ONE ×2 (15:05→16:36)
[2019-10-10] MEDS ORDERED: DEXAMETHASONE SOD PHOSPHATE INJ 4 MG/1 ML VIAL ONE (15:05)
[2019-10-10] MEDS ORDERED: KETOROLAC TROMETHAMINE 60 MG/2 ML SDV ONE (15:05)
[2019-10-10] MEDS ORDERED: LIDOCAINE 0.5% INJ-PF (5 MG/ML) 50 ML SDV ONE (15:06)
[2019-10-10] MEDS ORDERED: BACITRACIN ZINC OINTMENT 15 GM ONE (16:32)
[2019-10-10] MEDS ORDERED: BUPIVACAINE INJ/PF LIPOSOME/PF 266 MG/20 ML SDV ONE (16:32)
[2019-10-10] MEDS ORDERED: DEXMEDETOMIDINE INJ 80 MCG/20 ML VIAL IV ONE (16:36)
[2019-10-10] MEDS ORDERED: KETAMINE HCL INJ 500 MG/10 ML VIAL ONE (17:34)
[2019-10-10] MEDS ORDERED: ONDANSETRON HCL INJ/PF 4 MG/2 ML SDV IV PRN (17:58)
[2019-10-10 18:57] VITALS: BP 123/65
--- NOTE | 2019-10-10 23:59 | EKG REPORT ---
SEVERITY:- NORMAL ECG - SINUS RHYTHM : Confirmed by: Lucille Meadows MD 10-Oct-2019 23:58:42
--- NOTE | 2019-10-13 08:47 | Discharge Summary ---
Discharge Summary (SDC) - Discharge Final Diagnosis: Bleeding internal hemorrhoids Date of Surgery: 10/10/19 Discharge Date: 10/10/19 Condition: Stable Forms: ASU Anesthesia D/C Instruction, Discharge POC-Surgical Service Treatment or Instructions: DIET TOLERATED. NON STRENUOUS ACTIVITY. DO NOT STRAIN. DO NOT MAKE ANY IMPORTANT DECISION. NO DRIVING. NO ALCOHOL. Referrals: TIERRA ARAIZA MD [Primary Care Provider] - SAMUEL FLANAGAN MD [ACTIVE STAFF] - 10/21/19 1:45 pm Discharge Diet: As Tolerated Respiratory Treatments at Home: Deep Breathing/Coughing, Incentive Spirometer Discharge Activity: Activity As Tolerated Home Care Assistance: None Needed Report the Following to Your Physician Immediately: Shortness of Breath, Nausea, Vomiting, Increase in Pain, Fever over 101 Degrees
--- NOTE | 2019-10-13 08:49 | Operative Report ---
Nonrecallable Operative Report DATE OF SURGERY: 10/10/19 PREOPERATIVE DIAGNOSIS: Bleeding internal hemorrhoids, anal pain POSTOPERATIVE DIAGNOSIS: Same as above OPERATION: Rubber band ligation of internal hemorrhoids x2 SURGEON: SAMUEL FLANAGAN ANESTHESIA: LMAC TISSUE REMOVED OR ALTERED: None COMPLICATIONS: None apparent ESTIMATED BLOOD LOSS: Minimal PROCEDURE: Procedure in detail: After informed consent was obtained, the patient was brought to the operating room and laid in the prone position. Patient had some difficulty in the prone position, and this position was aborted in favor of a left lateral decubitus position. After adequate anesthesia was obtained, the [place] retractor was inserted into the rectum. No significant mucosal abnormalities could be identified at the proximal aspect of the rectum. In the distal rectum, enlarged internal hemorrhoids were identified in the right anterior and left lateral positions. These were ligated with the rubber band ligation device. Once this was completed, the procedure was concluded. All sponge, instrument, and needle counts were correct x2. Condition: Stable.
== END 2019-10-10 18:40 | disposition home or self-care (01) ==
LOC: OROUT 13:11
PROVIDERS: ATTEND Surgery
DX: K64.1 Second degree hemorrhoids (principal); K62.89 Other specified diseases of anus and rectum; J43.9 Emphysema, unspecified; Z88.8 Allergy status to other drugs, medicaments and biological substances; Z88.5 Allergy status to narcotic agent; Z87.891 Personal history of nicotine dependence; Z79.899 Other long term (current) drug therapy; Z79.51 Long term (current) use of inhaled steroids; Z85.828 Personal history of other malignant neoplasm of skin
CPT/HCPCS: 36415; 85027; 80048; 93005; 93010; 00902; 46221; J3010; J3490 ×2; J2765; J2405; J2704; C9290; 902; J1100; J1885

== ENCOUNTER 2020-01-20 22:25 | Emergency (ER) | payer BC ==
[2020-01-21] MEDS ORDERED: ALBUTEROL SULFATE 0.083% NEB 2.5 MG/3 ML AMPUL NEB ONE (01:49)
[2020-01-21] MEDS ORDERED: IPRATROPIUM/ALBUTEROL 0.5-2.5 MG/3 ML AMPUL NEB ONE (01:49)
[2020-01-21] MEDS ORDERED: METHYLPREDNISOLONE INJ 125 MG/2 ML SDV IV ONE (01:49)
[2020-01-21] MEDS ORDERED: MAGNESIUM SULFATE/D5W 1 GM/100 ML RTUPB IV ONE ×2 (01:50)
--- NOTE | 2020-01-21 01:54 | ER Document Report ---
ED General - General Chief Complaint: Cough Stated Complaint: COUGH Time Seen by Provider: 01/21/20 01:38 Primary Care Provider: TIERRA ARAIZA MD [Primary Care Provider] - Follow up as needed TRAVEL OUTSIDE OF THE [place] IN LAST 30 DAYS: No - HPI Notes: Patient is a 59-year-old male with a history of COPD/emphysema and previous lung surgeries to remove blebs on both sides presents complaining of possible symptoms of the coronavirus. 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 Patient states that over the past several days he has been feeling feverish with a dry cough and some shortness of breath. He is otherwise urinating normally and having normal bowel movements. Patient has not taken any medicine today and has not felt feverish today. Denies any headache, neck pain, sore throat, chest pain, palpitations, syncope, abdominal pain, nausea/vomiting/diarrhea, urinary retention, dysuria, hematuria, or rash. No history of DVT or PE. - Related Data Allergies/Adverse Reactions: morphine Allergy (Unknown, Verified 10/09/19 10:49) midazolam [From Versed] Adverse Reaction (Verified 10/09/18 14:09) VOMITING Past Medical History - Social History Smoking Status: Unknown if Ever Smoked Family History: Hyperlipidemia, Hypertension - Past Medical History Cardiac Medical History: Denies: Hx Coronary Artery Disease - CHOLESTEROL, Hx Heart Attack, Hx Hypertension Pulmonary Medical History: Reports: Hx Bronchitis, Hx COPD, Hx Pneumonia Denies: Hx Asthma Neurological Medical History: Denies: Hx Cerebrovascular Accident, Hx Seizures Renal/ Medical History: Reports: Hx Kidney Stones. Denies: Hx Peritoneal Dialysis Musculoskeletal Medical History: Reports Hx Arthritis Past Surgical History: Reports: Hx Abdominal Surgery - anal tumor resection, Other - Bilateral bleb resection (lung). Transanal excision of rectal tumor.. Denies: Hx Pacemaker - Immunizations Hx Diphtheria, Pertussis, Tetanus Vaccination: No Hx Pneumococcal Vaccination: 11/05/00 Review of Systems - Review of Systems -: Yes All other systems reviewed and negative Physical Exam - Vital signs Vitals: Resp Pulse Ox 24 H 97 01/20/20 22:56 01/20/20 22:56 - Notes Notes: PHYSICAL EXAMINATION: GENERAL: Well-appearing, well-nourished and in no acute distress. Speaks in complete sentences and answers questions appropriately. HEAD: Atraumatic, normocephalic. EYES: Pupils equal round and reactive to light, extraocular movements intact, sclera anicteric, conjunctiva are normal. ENT: Nares patent and without discharge. oropharynx clear without exudates. No tonsilar hypertrophy or erythema. Moist mucous membranes. NECK: Normal range of motion, supple without lymphadenopathy LUNGS: diminished b/l. no retractions. HEART: Regular rate and rhythm without murmurs, rubs, gallops. ABDOMEN: Soft, nontender, nondistended abdomen. No guarding, no rebound. Normal bowel sounds present. No CVA tenderness bilaterally. Musculoskeletal: FROM to passive/active. Strength 5+/5. Jossue neg. No asymmetry to LE's. Extremities: No cyanosis, clubbing, or edema b/l. Peripheral pulses 2+. Capillary refill less than 3 seconds. NEUROLOGICAL: Normal speech, normal gait. PSYCH: Normal mood, normal affect. SKIN: Warm, Dry, normal turgor, no rashes or lesions noted. Course - Re-evaluation Re-evalutation: 01/21/20 05:24 Patient is an afebrile, well-hydrated, 59-year-old male who presents with bibasilar pneumonia and history very concerning for possible coronavirus exposure. Vitals are acceptable without significant tachycardia, tachypnea, hypoxia. PE is otherwise unremarkable. Patient is nontoxic-appearing and is tolerating p.o. without difficulty. Patient was ambulated and maintained oxygen between 90 to 96% without becoming short of breath. Labs are otherwise acceptable at this time. Coronavirus testing has been performed. He has had negative flu test as well. Patient does have a N95 mask. No further labs or imaging warranted at this time based on H&P. Patient has been given Levaquin. Patient's lung sounds have improved overall. Thoroughly reviewed self- quarantine for approximately 4-6 days until notified about your viral testing. Stressed the importance of it and the risks/benefits. Strict return precautions reviewed. Low suspicion for any meningitis, sepsis, peritonsillar/pharyngeal abscess, respiratory compromise, severe dehydration, or other emergent systemic condition at this time. Patient is aware this condition can change from initial presentation and needs to monitor symptoms closely. Pt given albuterol dispense. Conservative measures otherwise for symptoms. Recheck with your PCM as needed otherwise. Return to the ED with any worsening/concerning symptoms otherwise as reviewed in discharge. Patient is in agreement. Dr. Duke in agreement with dispo/plan. - Vital Signs Vital signs: Temp Pulse Resp BP Pulse Ox 98.5 F 84 18 141/70 H 94 01/20/20 23:45 01/20/20 23:45 01/21/20 04:00 01/21/20 04:46 01/21/20 04:00 - Laboratory Result Diagrams: 01/21/20 03:59 01/21/20 03:59 Laboratory results interpreted by me: 01/21/20 01/21/20 03:59 03:59 WBC 11.4 H Glucose 142 H Discharge - Discharge Clinical Impression: Bilateral pneumonia Qualifiers: Pneumonia type: due to unspecified organism Lung location: lower lobe of lung Qualified Code(s): J18.9 - Pneumonia, unspecified organism Condition: Stable Disposition: HOME, SELF-CARE Additional Instructions: You have been tested for coronavirus and your test will take 4 to 6 days to complete. It is very important that you self-quarantine at home until notified about your lab test!! Maintain adequate fluid intake tylenol/ibuprofen as needed alternating every 3 hours for fever/body ache over the counter cold medication as needed for symptoms Humidified air may help Wash your hands regularly Wear a mask when coughing F/u: with your PCM as needed otherwise and/or when cleared Return to the ED with any fever, altered mental status/behavior, chest pain, palpitations, syncope, headache, neck pain/stiffness, worsening shortness of breath, chest pains, wheezing, drooling, trouble swallowing/breathing, abdominal pain, n/v/d, rash, or worsening/concerning symptoms otherwise. Prescriptions: Prednisone [Deltasone 20 mg Tablet] 3 tab PO DAILY 4 Days tablet Levofloxacin [Levaquin 750 mg Tablet] 750 mg PO DAILY #4 tablet Forms: Elevated Blood Pressure, Return to Work Referrals: TIERRA ARAIZA MD [Primary Care Provider] - Follow up as needed
[2020-01-21 02:26] LABS: A TYPE INFLUENZA AG NEGATIVE (NEGATIVE); B INFLUENZA AG NEGATIVE (NEGATIVE)
--- NOTE | 2020-01-21 02:45 | RADIOLOGY REPORT (SQ) ---
PA and lateral chest radiograph: 01/21/2020 1:43 AM CDT History: 59-year old patient with cough. Comparison: Chest radiograph performed 01/08/2019 Findings: The cardiomediastinal silhouette is normal in size. No pneumothorax is seen. No discrete pleural effusion is apparent. There are bibasilar airspace opacities, left greater than right. There are chain sutures seen right upper hemithorax. There is scarring noted at the apices. Impression: There are bibasilar airspace opacities, left greater than right. These may reflect developing infection. Interval follow-up to resolution is recommended.
[2020-01-21] MEDS ORDERED: NORMAL SALINE 500 ML IV ONE (03:56)
[2020-01-21 04:37] LABS: ALBUMIN 4.2 g/dL (3.5-5.0); ALKALINE PHOSPHATASE 85 U/L (38-126); ANION GAP 10 (5-19); ASPARTATE AMINO TRANSFERASE 24 U/L (17-59); BILIRUBIN,DIRECT 0.2 mg/dL (0.0-0.4); BLOOD UREA NITROGEN 13 mg/dL (7-20); CALCIUM 9.1 mg/dL (8.4-10.2); CARBON DIOXIDE 28 mmol/L (22-30); CHLORIDE 101 mmol/L (98-107); GLUCOSE 142 mg/dL (75-110); POTASSIUM 3.7 mmol/L (3.6-5.0); TOTAL PROTEIN 7.4 g/dL (6.3-8.2)
[2020-01-21 04:49] LABS: NT PRO BNP 66 pg/mL (<125)
[2020-01-21 04:50] LABS: ABSOLUTE BASOPHILS # (AUTO) 0.1 10^3/uL (0.0-0.2); ABSOLUTE EOSINOPHILS # (AUTO) 0.3 10^3/uL (0.0-0.6); ABSOLUTE LYMPHOCYTES (AUTO) 3.2 10^3/uL (0.5-4.7); ABSOLUTE MONOCYTES (AUTO) 0.9 10^3/uL (0.1-1.4); ABSOLUTE NEUT (AUTO) 6.9 10^3/uL (1.7-8.2); BASOPHILS % (AUTO) 0.8 % (0-2); EOSINOPHILS % (AUTO) 2.7 % (0-6); HEMATOCRIT 38.9 % (37.9-51.0); HEMOGLOBIN 13.9 g/dL (13.5-17.0); LYMPHOCYTES % (AUTO) 28.3 % (13-45); MEAN CORPUSCULAR HEMOGLOBIN 31.7 pg (27.0-33.4); MEAN CORPUSCULAR HGB CONC 35.6 g/dL (32.0-36.0); MEAN CORPUSCULAR VOLUME 89 fl (80-97); MONOCYTES % (AUTO) 7.5 % (3-13); PLATELET COUNT 201 10^3/uL (150-450); RED BLOOD COUNT 4.37 10^6/uL (4.35-5.55); RED CELL DISTRIBUTION WIDTH 13.2 % (11.5-14.0); SEGMENTED NEUTROPHILS % (AUTO) 60.7 % (42-78); TOTAL CELLS COUNTED % (AUTO) 100 %; TROPONIN I < 0.012 ng/mL; WHITE BLOOD COUNT 11.4 10^3/uL (4.0-10.5)
[2020-01-21] MEDS ORDERED: LEVOFLOXACIN 750 MG TABLET PO ONE (05:01)
[2020-01-21] MEDS ORDERED: ALBUTEROL SULFATE HFA (90 MCG/PUFF) 8 GM MDI (1 MDI/ER DISP) IH ONE (05:28)
[2020-01-21 05:52] VITALS: BP 134/72
--- NOTE | 2020-01-21 11:20 | EKG REPORT ---
SEVERITY:- ABNORMAL ECG - SINUS RHYTHM INCOMPLETE RIGHT BUNDLE BRANCH BLOCK : Confirmed by: Lucille Meadows MD 21-Jan-2020 11:19:55
== END 2020-01-21 06:02 | disposition home or self-care (01) ==
LOC: ER 22:25
DX: J18.9 Pneumonia, unspecified organism (principal); R05 Cough; J43.9 Emphysema, unspecified; Z98.890 Other specified postprocedural states; R50.9 Fever, unspecified; R06.02 Shortness of breath; Z88.8 Allergy status to other drugs, medicaments and biological substances; Z20.828 Contact with and (suspected) exposure to other viral communicable diseases
CPT/HCPCS: 93005; 94640; 99284; 96375; 96365; 96366; 36415; 85025; 87635; 80053; 84484; 87804; 83880; 71046; 93010; J2930; J3475; J3490; J7620